=== PATIENT | male | born 1965 | race Hispanic/Latino ===

== ENCOUNTER 2016-07-27 09:33 | Emergency (ER) | payer OTHER ==
[2016-07-27 09:34] VITALS: BMI 21.8
[2016-07-27 09:46] VITALS: BP 134/84; PULSE 84; RESP 18; TEMP 98.3; O2SAT 96
--- NOTE | 2016-07-27 12:06 | RAD ---
PROCEDURE: Radiographs of the Left Shoulder HISTORY: shoulder pain COMPARISON: No prior. FINDINGS: BONES: Normal. No fracture. JOINTS: Normal. Glenohumeral and acromioclavicular joints preserved. No osteoarthritis. SOFT TISSUES: Normal. OTHER FINDINGS: None. IMPRESSION: Normal radiographs of the left shoulder.
--- NOTE | 2016-07-27 12:16 | CT ---
PROCEDURE: CT NECK WITHOUT CONTRAST HISTORY: intermittent difficulty swallowing x 1 week COMPARISON: None. TECHNIQUE: CT of the neck without intravenous contrast. Coronal and sagittal reformats generated. Radiation dose: DLP 309 mGy-cm This CT exam was performed using one or more of the following dose reduction techniques: Automated exposure control, adjustment of the mA and/or kV according to patient size, and/or use of iterative reconstruction technique. FINDINGS: NASOPHARYNX: Unremarkable. SUPRAHYOID NECK: Unremarkable oropharynx, oral cavity, parapharyngeal space and retropharyngeal space. INFRAHYOID NECK: Unremarkable larynx, hypopharynx, and supraglottic space. Vocal cords intact. MASS: None. GLANDS: Parotid and submandibular glands unremarkable. Normal size thyroid gland, without nodule. LYMPH NODES: Mild adenopathy CERVICAL SPINE: No fracture or focal lesion. OTHER FINDINGS: None. IMPRESSION: Unremarkable non-contrast enhanced CT of the neck.
--- NOTE | 2016-07-27 13:23 | ED PDOC ---
Arrival/HPI - General Chief Complaint: Upper Extremity Problem/Injury Time Seen by Provider: 07/27/16 10:14 Historian: Patient - History of Present Illness Narrative History of Present Illness (Text): 07/27/16 51-year-old male presents today with left-sided shoulder pain worsening over the past 2 days. Patient states he has chronic shoulder pain. Patient states he takes oxycodone at home. Patient denies any recent trauma or injury. He denies radiation of pain to the chest or back. Patient states this is the same shoulder pain that he always has. Patient states he had an MRI in the past. Patient denies numbness weakness or tingling in the extremity. Patient also complaining of one to 2 week history of intermittent difficulty with swallowing. Patient states sometimes when he eats food he feels like it starting to get stuck in the throat. He denies trauma or injury. Patient states he is able to tolerate his saliva as well as liquids and occasionally solids. Patient denies any difficulty breathing. Denies fevers or chills. Past Medical History - Provider Review Nursing Documentation Reviewed: Yes - Travel History Have you recently traveled outside [place] w/in the past 3 mons?: No - Infectious Disease Hx of Infectious Diseases: None - Tetanus Immunization Tetanus Immunization: Unknown - Cardiac Hx Cardiac Disorders: No - Pulmonary Hx Respiratory Disorders: No - Neurological Hx Neurological Disorder: No - HEENT Hx HEENT Disorder: No - Renal Hx Renal Disorder: No Hx Renal Failure: No - Endocrine/Metabolic Hx Endocrine Disorders: No - Hematological/Oncological Hx Blood Disorders: No - Integumentary Hx Dermatological Disorder: No - Musculoskeletal/Rheumatological Hx Back Pain: Yes Other/Comment: Knee problems - Gastrointestinal Hx Gastrointestinal Disorders: No - Genitourinary/Gynecological Hx Genitourinary Disorders: No Hx Prostate Problems: Yes Other/Comment: hx of kidney stones, frequent urination. On flomax daily - Psychiatric Hx Substance Use: No - Surgical History Hx Amputation: No Hx Appendectomy: Yes Hx Cardiac Catheterization: Yes Hx Orthopedic Surgery: Yes (knee) - Suicidal Assessment Feels Threatened In Home Enviroment: No Family/Social History - Physician Review Nursing Documentation Reviewed: Yes Family/Social History: Unknown Family HX Smoking Status: Heavy Smoker > 10 Cigarettes Daily Hx Alcohol Use: No Hx Substance Use: No Hx Substance Use Treatment: No Allergies/Home Meds Allergies/Adverse Reactions: Allergies No Known Allergies Allergy (Verified 07/27/16 09:46) Home Medications: Home Meds Medication Instructions Recorded Confirmed Tamsulosin [Flomax] 0.4 mg PO BID 02/21/13 07/27/16 oxyCODONE [oxyCODONE Immediate 30 mg PO QD6 02/23/16 07/27/16 Release Tab] ALPRAZolam [Xanax] 1 tab PO BID 07/27/16 07/27/16 Review of Systems - Review of Systems Constitutional: absent: Fatigue, Fevers ENT: Sinus Congestion. absent: Sore Throat, Rhinorrhea, Epistaxis Respiratory: absent: SOB, Cough Cardiovascular: absent: Chest Pain, Palpitations Gastrointestinal: absent: Abdominal Pain, Diarrhea, Nausea, Vomiting Genitourinary Male: absent: Dysuria Musculoskeletal: Arthralgias. absent: Back Pain, Neck Pain Skin: absent: Rash, Pruritis Physical Exam Vital Signs Reviewed: Yes Vital Signs Temp Pulse Resp BP Pulse Ox 07/27/16 09:39 98.3 F 84 18 134/84 96 Temperature: Afebrile Blood Pressure: Normal Pulse: Regular Respiratory Rate: Normal Appearance: Positive for: Well-Appearing, Non-Toxic, Comfortable Pain Distress: None Mental Status: Positive for: Alert and Oriented X 3 - Systems Exam Head: Present: Atraumatic Mouth: Present: Moist Mucous Membranes, Normal Lips. No: Drooling, Trismus Pharnyx: Present: Normal. No: ERYTHEMA, EXUDATE, TONSILS ENLARGED, Peritonsilar Swelling, Uvular Deviation, Muffled/Hoarse Voice, Strider, Soft Palate/Uvular Edema Neck: Present: Normal Range of Motion Respiratory/Chest: Present: Clear to Auscultation, Good Air Exchange. No: Respiratory Distress, Accessory Muscle Use Cardiovascular: Present: Regular Rate and Rhythm, Normal S1, S2. No: Murmurs Abdomen: No: Tenderness Upper Extremity: Present: NORMAL PULSES, Tenderness (left shoulder + ttp over anterior aspect of shoulder; decreased abduction; no erythema; no edema, no ecchymosis; sensation and distal pulses intact. cap refill <2. ), Neurovascularly Intact, Capillary Refill < 2s. No: Normal ROM, Swelling, Erythema, Deformity Neurological: Present: GCS=15 Skin: Present: Warm, Dry, Normal Color. No: Rashes Psychiatric: Present: Alert, Oriented x 3 Medical Decision Making ED Course and Treatment: 07/27/16 51-year-old smoker with chronic left-sided shoulder pain X-rays of the left shoulder show no fracture Toradol given for pain Patient complaining of dysphagia to solids over the past 2 weeks. Airways patent. There is no difficulty breathing. We'll do a CAT scan of the neck to evaluate for obstruction. will do cxr as well ct neck ; wnl cxr; wnl discussed all results with patient in depth; advised patient to follow a soft diet and F/u with GI within the next 2 days. advised patient that he will most likely need evaluation of the esophagus with endoscopy. advised patient to return immediately if symptoms worsen,persist or if new symptoms develop. advised patient to f/u with orthopedist regarding is chronic shoulder pain. pt tolerating secretions and liquids in er. no distress. pt is requesting additional pain medication in the er. i advised the patient that this is chronic shoulder pain and he can take his prescribed medications. i have reviewed the [facility] website and found that on 07/14 the patient received 120 oxycodones. i advised adding motrin for inflammation. again i stressed with the patient the importance of immediate f/u with GI regarding his dysphagia. Patient verbalizes understanding of discharge instructions and need for immediate followup. all aspects of this case were discussed the attending of record. Impression: Shoulder pain, dysphagia motrin every 6 hours as needed for pain flonase; 2 sprays each nostril once daily. SOFT DIET Follow up with the GI specialist within the next 2 days. return immediately if symptoms worsen,persist or if new symptoms develop. follow up with the orthopedist within the next 2 days. - RAD Interpretation Radiology Orders: 07/27/16 10:17 SHOULDER LEFT [RAD] Stat 07/27/16 10:26 NECK SOFT TISSUE W/O CONTRAST [CT] Stat 07/27/16 13:37 CHEST TWO VIEWS (PA/LAT) [RAD] Stat - Medication Orders Current Medication Orders: Discontinued Medications Ketorolac Tromethamine (Toradol) 60 mg IM STAT STA Stop: 07/27/16 10:18 Last Admin: 07/27/16 10:49 Dose: 60 MG IM Administration Charges Document 07/27/16 10:49 FRANNY (Rec: 07/27/16 10:49 FRANNY [facility] [id number]) Injection Site MAR Injection Site Left Deltoid Charges for Administration # of IM Administrations 1 Disposition/Present on Arrival - Present on Arrival Any Indicators Present on Arrival: No History of DVT/PE: No History of Uncontrolled Diabetes: No Urinary Catheter: No History of Decub. Ulcer: No History Surgical Site Infection Following: None - Disposition Have Diagnosis and Disposition been Completed?: Yes Diagnosis: Shoulder pain, Dysphagia Disposition: HOME/ ROUTINE Disposition Time: 13:00 Patient Plan: Discharge Condition: GOOD Discharge Instructions (ExitCare): Dysphagia (ED), Shoulder Pain (ED) Additional Instructions: motrin every 6 hours as needed for pain flonase; 2 sprays each nostril once daily. SOFT DIET Follow up with the GI specialist within the next 2 days. return immediately if symptoms worsen,persist or if new symptoms develop. follow up with the orthopedist within the next 2 days. Prescriptions: Ibuprofen [Motrin] 600 mg PO Q6H PRN #20 tab PRN Reason: pain/fever reduction Referrals: Austin oJe JD, MD [Primary Care Provider] - Follow up with primary Spencer Rayo MD [Staff Provider] - Follow up with primary Daquan Lopez III, MD [Medical Doctor] - Follow up with primary Forms: WORK NOTE
--- NOTE | 2016-07-27 14:56 | RAD ---
HISTORY: dysphagia COMPARISON: 02/23/2016 TECHNIQUE: Chest PA and lateral FINDINGS: LUNGS: No active pulmonary disease. PLEURA: No significant pleural effusion identified. No pneumothorax apparent. CARDIOVASCULAR: Normal. OSSEOUS STRUCTURES: No significant abnormalities. VISUALIZED UPPER ABDOMEN: Normal. OTHER FINDINGS: None. IMPRESSION: No active disease.
== END 2016-07-27 15:08 | disposition home or self-care (01) ==
LOC: ED 09:33
DX: M25.512 Pain in left shoulder (principal); R13.10 Dysphagia, unspecified; F17.210 Nicotine dependence, cigarettes, uncomplicated
CPT/HCPCS: 70490; 71020; 73030; 96372; 99282; J1885

== ENCOUNTER 2017-04-24 02:54 | Inpatient (IN) | payer OTHER ==
[2017-04-24 02:54] VITALS: BMI 21.8
--- NOTE | 2017-04-24 02:56 | ED PDOC ---
Arrival/HPI - General Time Seen by Provider: 04/24/17 02:56 Historian: Family, EMS - History of Present Illness Narrative History of Present Illness (Text): 04/24/17 02:56 Abel Branham is a 51 year old male, whose past medical history degenerative joint disease, chronic pain on Oxycontin, opiate dependence, COPD, hyperlipidemia, and BPH, who presents to the Emergency department brought in by EMS status post possible overdose tonight. As per EMS, patient was found unresponsive by his son who notified EMS. Son notes patient passed out once while in the bathroom yesterday and was last seen normal at 21:00. Family states patient may have taken Oxycontin and Xanax. On arrival, EMS noted patient with agonal breathing, patient was given 2 doses of Narcan in the field with minimal response. Patient lethargic and poorly responsive on arrival to Emergency department. Limited HPI and ROS secondary to patient's altered mental status. PMD: Dr. Patricia Joe Time/Duration: Other (tonight) Symptom Onset: Sudden Symptom Course: Unchanged Severity Level: Severe Activities at Onset: Light Context: Home Past Medical History - Provider Review Nursing Documentation Reviewed: Yes - Infectious Disease Hx of Infectious Diseases: None - Tetanus Immunization Tetanus Immunization: Unknown - Cardiac Hx Cardiac Disorders: No - Pulmonary Hx Respiratory Disorders: No - Neurological Hx Neurological Disorder: No - HEENT Hx HEENT Disorder: No - Renal Hx Renal Disorder: No Hx Renal Failure: No - Endocrine/Metabolic Hx Endocrine Disorders: No - Hematological/Oncological Hx Blood Disorders: No - Integumentary Hx Dermatological Disorder: No - Musculoskeletal/Rheumatological Hx Back Pain: Yes Other/Comment: Knee problems - Gastrointestinal Hx Gastrointestinal Disorders: No - Genitourinary/Gynecological Hx Genitourinary Disorders: No Hx Prostate Problems: Yes Other/Comment: hx of kidney stones, frequent urination. On flomax daily - Psychiatric Hx Substance Use: No - Surgical History Hx Amputation: No Hx Appendectomy: Yes Hx Cardiac Catheterization: Yes Hx Orthopedic Surgery: Yes (knee) - Suicidal Assessment Feels Threatened In Home Enviroment: No Family/Social History - Physician Review Nursing Documentation Reviewed: Yes Family/Social History: Unknown Family HX Smoking Status: Heavy Smoker > 10 Cigarettes Daily Hx Alcohol Use: No Hx Substance Use: No Hx Substance Use Treatment: No Allergies/Home Meds Allergies/Adverse Reactions: Allergies No Known Allergies Allergy (Verified 07/27/16 09:46) Home Medications: Home Meds Medication Instructions Recorded Confirmed Tamsulosin [Flomax] 0.4 mg PO BID 02/21/13 04/24/17 oxyCODONE [oxyCODONE Immediate 30 mg PO QD6 02/23/16 04/24/17 Release Tab] ALPRAZolam [Xanax] 1 tab PO BID 07/27/16 04/24/17 Review of Systems - Review of Systems Systems not reviewed;Unavailable: Altered Mental Status Physical Exam Vital Signs Reviewed: Yes Vital Signs Temp Pulse Resp BP Pulse Ox 04/24/17 05:16 100.3 F H 112 H 16 90/71 L 99 04/24/17 04:53 100 H 15 86/69 L 100 04/24/17 04:33 112 H 16 93/72 L 100 04/24/17 04:18 114 H 16 100/69 100 04/24/17 04:03 100 H 16 102/73 100 04/24/17 03:33 102 F H 123 H 16 118/55 L 100 04/24/17 03:32 102.8 F H 102 H 44 H 151/73 H 89 L 04/24/17 03:15 100 H 17 101/70 100 04/24/17 03:00 102.8 F H 102 H 33 H 151/73 H 89 L Temperature: Febrile Blood Pressure: Hypertensive Pulse: Tachycardic Respiratory Rate: Tachypneic Mental Status: Positive for: Lethargic, other (Poorly responsive) - Systems Exam Head: Present: Atraumatic, Normocephalic Pupils: Present: PERRL Extroacular Muscles: Present: EOMI Conjunctiva: Present: Normal Ears: Present: Normal, NORMAL TM, Normal Canal. No: Erythema, TM Bulging, Fluid , TM Perf Mouth: Present: Moist Mucous Membranes Pharnyx: Present: Normal. No: ERYTHEMA, EXUDATE, TONSILS ENLARGED, Peritonsilar Swelling, Uvular Deviation, Muffled/Hoarse Voice, Strider, Soft Palate/Uvular Edema Nose (External): Present: Atraumatic Nose (Internal): Present: Normal Inspection Neck: Present: Normal Range of Motion Respiratory/Chest: Present: Rhonchi Cardiovascular: Present: Tachycardic. No: Murmurs Abdomen: Present: Normal Bowel Sounds. No: Tenderness, Distention, Peritoneal Signs Upper Extremity: Present: Normal Inspection. No: Cyanosis, Edema Lower Extremity: Present: Normal Inspection. No: Edema Neurological: No: GCS=15 (GCS=10) Skin: Present: Warm, Dry Psychiatric: Present: Lethargic (Poorly responsive) Medical Decision Making ED Course and Treatment: 04/24/17 02:56 Impression: 51 year old male brought in s/p possible overdose prior to arrival. Plan: -- EKG -- Chest X-ray -- Labs, cardiac enzymes, alcohol level, VBG, ABG, blood cultures -- Urinalysis, urine drug screen, urine cultures -- IV fluids -- Tylenol -- Reassess and disposition Prior Visits: Notes and results from previous visits were reviewed. On 07/27/2016, pt was seen in the Emergency department for left-sided shoulder pain and difficulty swallowing. Pt was d/c home. Progress Notes: Pt seen on arrival to Emergency room. Pt noted to be lethargic, poorly responsive. Will emergently intubate due to low pulse ox < 90% and respiratory distress with tachypnea. 04/24/17 03:05 PROCEDURE: INTUBATION Performed by the emergency provider Consent: Discussion of the risks, benefits, and alternatives to the procedure, along with informed consent was precluded by the urgency of the procedure and the patient condition. Timeout: A timeout to verify the correct patient, procedure, and site was performed. Indication: Respiratory distress with tachypnea, low pulse ox < 90% Pre-oxygenation: [id number] Medications: Etomidate, Propofol. See MAR for details. ETT Size: 8 gauge Confirmation: Cords directly visualized as tube passed, good bilateral breath sounds, positive CO2 detector color change, tube fogging, adequate chest rise, improving pulse oximetry reading, improved skin color, and absence of gastric sounds,. ETT Secured: The cuff was inflated and the tube was secured appropriately at a distance of 22 cm at the lip. Post-Procedure: There were no immediate complications. CXR Confirmation: Yes 04/24/17 03:46 Reviewed EKG, sinus tachycardia at [address] bpm[address] Non-specific ST/T wave changes. 04/24/17 03:51 Lactate: 5.9, pt ferile, tachycardic. Code Sepsis called. 04/24/17 03:53 Post-intubation Chest X-ray reviewed, shows increased interstitial markings. ET tube high-riding, will need to be adjusted. 04/24/17 04:05 ET tube readjusted, now 26 cm at the lip, 100% O2 saturation. Repeat Chest X- ray ordered. 04/24/17 04:[address] Amalia Mooney, resolution specialist, who is aware and agrees to evaluate pt for ICU admission. Case discussed with medical affairs director health information coder, who is aware and agrees with plan. 04/24/17 04:36 repeat Chest X-ray reviewed, ET tube above the neville. 04/24/17 04:[address] Marroquin, covering for Dr. Joe, states pt can go to hospitalist service. Pt will be admitted to the ICU for drug overdose, respiratory failure, sepsis, and pneumonia. - Critical Care Critical Care Minutes: 45 minutes - Lab Interpretations Lab Results: 04/24/17 03:00 04/24/17 03:00 Lab Results 04/24/17 03:33: pCO2 57 H, pO2 309.0 H, HCO3 27.4, ABG pH 7.29 L, ABG Total CO2 29.1 H, ABG O2 Saturation 100.2 H, ABG Base Excess -0.3, ABG Potassium 3.1 L, Sodium 141.0, Chloride 108.0 H, Glucose 141 H, Lactate 3.0 H, FiO2 100.0, Arterial Blood Potassium 3.1 L 04/24/17 03:00: Salicylates < 1 L, Acetaminophen < 10.0 L 04/24/17 03:00: Alcohol, Quantitative < 10 04/24/17 03:00: Sodium 144, Chloride 100, Potassium 4.2, Carbon Dioxide 31, Anion Gap 18, BUN 21, Creatinine 1.1, Est GFR ( Amer) > 60, Est GFR (Non- Af Amer) > 60, Random Glucose 190 H, Calcium 9.1, Phosphorus 3.6, Magnesium 2.4 H, Total Bilirubin 0.5, AST 84 H, ALT 48, Alkaline Phosphatase 57, Lactate Dehydrogenase 545, Total Creatine Kinase 379 H, CK-MB (CK-2) 4.9 H, CK-MB (CK-2 ) % Cancelled, Troponin I 0.16 H* D, Total Protein 7.3, Albumin 4.3, Globulin 3.0, Albumin/Globulin Ratio 1.4 04/24/17 03:00: pO2 30, VBG pH 7.20 L, VBG pCO2 81.0 H*, VBG HCO3 31.7 H, VBG Total CO2 34.2 H, VBG O2 Sat (Calc) 62.8, VBG Base Excess 1.2, VBG Potassium 4.6 , Sodium 141.0, Chloride 102.0, Glucose 185 H, Lactate 5.9 H*, FiO2 21.0, Venous Blood Potassium 4.6 04/24/17 03:00: PT 11.4, INR 1.04, APTT 28.8 04/24/17 03:00: WBC 15.2 H D, RBC 4.43, Hgb 13.8 L, Hct 42.5, MCV 95.9, MCH 31.2 , MCHC 32.5, RDW 14.1, Plt Count 192, MPV 11.0, Gran % 86.9 H, Lymph % (Auto) 6.4 L, Leslie % (Auto) 6.4 H, Eos % (Auto) 0.1 L, Baso % (Auto) 0.2, Gran # 13.17 H, Lymph # 1.0 L, Leslie # 1.0 H, Eos # 0.0, Baso # 0.03 I have reviewed the lab results: Yes - RAD Interpretation Radiology Orders: 04/24/17 03:25 CHEST PORTABLE [RAD] Stat 04/24/17 04:22 CHEST PORTABLE [RAD] Stat Dairy Helper: ED Physician - EKG Interpretation Interpreted by ED Physician: Yes Type: 12 lead EKG - Medication Orders Current Medication Orders: Enoxaparin Sodium (Lovenox) 80 mg SC Q12H ANILA PRN Reason: Protocol Last Admin: 04/24/17 11:49 Dose: 80 mg Subcutaneous Administrations Document 04/24/17 11:49 [email or web address] (Rec: 04/24/17 11:49 [email or web address]) Injection Site MAR Injection Site Right Abdomen Charges for Administration # of Subcutaneous Administrations 1 Propofol (Diprivan) 1,000 mg in 100 mls @ 2.191 mls/hr IV .Q24H PRN; Protocol; 5 MCG/KG/MIN PRN Reason: TITRATE PER MD ORDER Last Titration: 04/24/17 18:14 Dose: 30 mcg/kg/min, 13.145 mls/hr Titration Intervention Document 04/24/17 18:14 [email or web address] (Rec: 04/24/17 18:14 [email or web address] [id number]) Titration Intake Titration Intake 30 Cumulative Intake 70 Cumulative Intake (Rx) 70 Waste Amount 0 Container Volume 30 Titration Dosing Titration Dose 30 IV Rate 13.145 Intake/Decrease Increased Cumulative Dose 700 Sodium Chloride (Sodium Chloride 0.9%) 1,000 mls @ 100 mls/hr IV .Q10H ANILA Last Admin: 04/24/17 18:03 Dose: 100 mls/hr eMAR Start Stop Document 04/24/17 18:03 [email or web address] (Rec: 04/24/17 18:03 [email or web address] [id number]) Intravenous Solution Start Date 04/24/17 Start Time 18:03 Vancomycin HCl (Vancomycin 1gm) 1 gm in 250 mls @ 167 mls/hr IVPB DAILY ANILA PRN Reason: Protocol Vancomycin HCl (Vancomycin 1gm) 1 gm in 250 mls @ 167 mls/hr IVPB Q12H ANILA PRN Reason: Protocol Stop: 05/03/17 10:46 Last Admin: 04/24/17 11:12 Dose: Piperacillin Sod/Tazobactam Sod (Zosyn 3.375 In Ns 100ml) 100 mls @ 200 mls/hr IVPB Q6 ANILA PRN Reason: Protocol Stop: 05/03/17 12:01 Last Admin: 04/24/17 17:59 Dose: 200 mls/hr eMAR Start Stop Document 04/24/17 17:59 [email or web address] (Rec: 04/24/17 17:59 [email or web address] [id number] [id number]) Intravenous Solution Start Date 04/24/17 Start Time 17:59 End Date 04/24/17 End time 18:29 Total Infusion Time 30 Levofloxacin/Dextrose (Levaquin 750mg) 750 mg IVPB DAILY ANILA Stop: 05/04/17 10:01 Nicotine (Nicoderm Cq) 1 patch TD DAILY [facility] Last Admin: 04/24/17 18:01 Dose: 1 patch MAR Transdermal Patch Site Document 04/24/17 18:01 [email or web address] (Rec: 04/24/17 18:02 [email or web address] [id number]) Transdermal Patch Site Transdermal Patch Site Right Outer Upper Arm Pantoprazole Sodium (Protonix Inj) 40 mg IVP DAILY ANILA Last Admin: 04/24/17 10:26 Dose: 40 mg IVP Administration Document 04/24/17 10:26 [email or web address] (Rec: 04/24/17 10:26 [email or web address] [id number]) Charges for Administration # of IVP Administrations 1 Discontinued Medications Acetaminophen (Tylenol 650 Mg Supp) 650 mg RC STAT STA Stop: 04/24/17 03:42 Last Admin: 04/24/17 03:55 Dose: Etomidate (Amidate) 10 mg IVP STAT STA Stop: 04/24/17 03:16 Last Admin: 04/24/17 03:04 Dose: 10 mg IVP Administration Document 04/24/17 03:04 AB (Rec: 04/24/17 04:34 AB [id number] Charges for Administration # of IVP Administrations 1 Sodium Chloride (Sodium Chloride 0.9%) 1,000 mls @ 2,000 mls/hr IV .Q30M ONE Stop: 04/24/17 04:02 Last Admin: 04/24/17 03:54 Dose: 2,000 mls/hr eMAR Start Stop Document 04/24/17 03:54 AB (Rec: 04/24/17 03:54 AB [facility] [id number]) Intravenous Solution Start Date 04/24/17 Start Time 03:00 End Date 04/24/17 Sodium Chloride (Sodium Chloride 0.9%) 1,000 mls @ 999 mls/hr IV .Q1H1M STA Stop: 04/24/17 04:51 Last Admin: 04/24/17 03:55 Dose: 999 mls/hr eMAR Start Stop Document 04/24/17 03:55 AB (Rec: 04/24/17 03:55 AB [facility] [id number]) Intravenous Solution Start Date 04/24/17 Start Time 03:55 End Date 04/24/17 Vancomycin HCl (Vancomycin 1gm) 1 gm in 250 mls @ 167 mls/hr IVPB STAT STA PRN Reason: Protocol Stop: 04/24/17 05:28 Last Admin: 04/24/17 04:47 Dose: 167 mls/hr eMAR Start Stop Document 04/24/17 04:47 AB (Rec: 04/24/17 04:48 AB [facility] [id number]) Intravenous Solution Start Date 04/24/17 Start Time 04:48 End Date 04/24/17 End time 05:48 Total Infusion Time 60 Piperacillin Sod/Tazobactam Sod (Zosyn 4.5 Gm In Ns 100ml) 4.5 gm in 100 mls @ 200 mls/hr IVPB STAT STA PRN Reason: Protocol Stop: 04/24/17 04:28 Last Admin: 04/24/17 04:28 Dose: 200 mls/hr eMAR Start Stop Document 04/24/17 04:28 AB (Rec: 04/24/17 04:31 AB [id number]) Intravenous Solution Start Date 04/24/17 Start Time 04:28 End Date 04/24/17 End time 04:58 Total Infusion Time 30 Sodium Chloride (Sodium Chloride 0.9%) 1,000 mls @ 999 mls/hr IV .Q1H1M STA Stop: 04/24/17 05:30 Piperacillin Sod/Tazobactam Sod (Zosyn 4.5 Gm In Ns 100ml) 4.5 gm in 100 mls @ 200 mls/hr IVPB Q6H ANILA PRN Reason: Protocol Stop: 04/24/17 16:29 Last Admin: 04/24/17 10:26 Dose: 200 mls/hr eMAR Start Stop Document 04/24/17 10:26 [email or web address] (Rec: 04/24/17 10:26 [email or web address] [id number]) Intravenous Solution Start Date 04/24/17 Start Time 10:26 End Date 04/24/17 End time 10:56 Total Infusion Time 30 Sodium Chloride (Sodium Chloride 0.9%) 500 mls @ 999 mls/hr IV .Q31M STA Stop: 04/24/17 08:39 Last Admin: 04/24/17 10:25 Dose: 999 mls/hr eMAR Start Stop Document 04/24/17 10:25 [email or web address] (Rec: 04/24/17 10:25 [email or web address] [id number]) Intravenous Solution Start Date 04/24/17 Start Time 08:00 End Date 04/24/17 End time 08:32 Total Infusion Time 32 Pneumococcal Polyvalent Vaccine (Pneumovax 23 Vaccine) 0.5 ml IM .ONCE ONE Stop: 04/24/17 12:32 Propofol (Diprivan) 100 mg IVP ONCE ONE Stop: 04/24/17 03:21 Last Admin: 04/24/17 03:06 Dose: 100 mg IVP Administration Document 04/24/17 03:06 AB (Rec: 04/24/17 04:34 AB [id number]) Charges for Administration # of IVP Administrations 1 - Scribe Statement The provider has reviewed the documentation as recorded by the Consueloibruth Curry Provider Scribe Attestation: All medical record entries made by the Scribe were at my direction and personally dictated by me. I have reviewed the chart and agree that the record accurately reflects my personal performance of the history, physical exam, medical decision making, and the department course for this patient. I have also personally directed, reviewed, and agree with the discharge instructions and disposition. Disposition/Present on Arrival - Present on Arrival Any Indicators Present on Arrival: No History of DVT/PE: No History of Uncontrolled Diabetes: No Urinary Catheter: No History Surgical Site Infection Following: None - Disposition Have Diagnosis and Disposition been Completed?: Yes Diagnosis: Sepsis, Pneumonia, Drug overdose Disposition: HOSPITALIZED Disposition Time: 05:04 Patient Plan: Admission Patient Problems: Current Active Problems Problem Status Onset Drug overdose Acute Pneumonia Acute Sepsis Acute Condition: GUARDED
[2017-04-24] MEDS ORDERED: Etomidate 20 mg/10ml Inj IV ONE (03:01)
[2017-04-24] MEDS ORDERED: Propofol 10 mg/ml 1,000 MG/100 ML VIAL ONE (03:08)
[2017-04-24] MEDS ORDERED: Propofol 10 mg/ml Inj (20 ML) ONE (03:08)
[2017-04-24] MEDS: Propofol 10 mg/ml 1,000 MG/100 ML VIAL IV PRN ×2 (03:09→22:58)
[2017-04-24] MEDS ORDERED: Etomidate 20 mg/10ml Inj IVP STA (03:15)
[2017-04-24] MEDS ORDERED: Propofol 10 mg/ml Inj (20 ML) IVP ONE (03:20)
[2017-04-24] MEDS ORDERED: Sodium Chloride 0.9% 1,000 ML IV ONE (03:33)
[2017-04-24 03:48] LABS: VENOUS BLOOD GAS BASE EXCESS 1.2 mmol/L (0.0-2.0); VENOUS BLOOD GAS PO2 30 mm/Hg (30-55)
[2017-04-24] MEDS ORDERED: Sodium Chloride 0.9% 1,000 ML IV STA ×2 (03:51→04:30)
[2017-04-24 03:53] LABS: BASO # 0.03 K/mm3 (0.0-2.0); BASO % 0.2 % (0.0-3.0); EOS % 0.1 % (1.5-5.0); GRAN # 13.17 (1.4-6.5); GRAN % 86.9 % (50.0-68.0); HEMOGLOBIN 13.8 g/dL (14.0-18.0); LYMPH % 6.4 % (22.0-35.0); MEAN CELL VOLUME 95.9 fl (80.0-105.0); MEAN CORPUSCULAR HEMOGLOBIN 31.2 pg (25.0-35.0); MEAN CORPUSCULAR HGB CONC 32.5 g/dl (31.0-37.0); MONO % 6.4 % (1.0-6.0); RBC 4.43 10^6/uL (3.5-6.1); RED CELL DISTRIBUTION WIDTH 14.1 % (11.5-14.5); WHITE BLOOD COUNT 15.2 10^3/ul (4.5-11.0)
[2017-04-24 03:57] LABS: INR 1.04 (0.93-1.08); PROTHROMBIN TIME 11.4 SECONDS (9.4-12.5)
[2017-04-24 03:58] LABS: PARTIAL THROMBOPLASTIN TIME 28.8 Seconds (25.1-36.5)
[2017-04-24] MEDS ORDERED: Piperacill/Tazo 4.5gm in NS 4.5 GM/100 ML BAG IVPB STA (03:59)
[2017-04-24] MEDS ORDERED: Vancomycin 1gm in NS 250ml 1 GM/250 ML BAG IVPB STA (03:59)
[2017-04-24 04:05] LABS: ALB/GLOB RATIO 1.4 (1.1-1.8); ALBUMIN 4.3 g/dL (3.0-4.8); ALT/SGPT 48 U/L (7-56); AST/SGOT 84 U/L (17-59); BLOOD UREA NITROGEN 21 mg/dL (7-21); CALCIUM 9.1 mg/dL (8.4-10.5); GFR AFRICAN-AMERICAN > 60; GFR NON-AFRICAN AMERICAN > 60; MAGNESIUM 2.4 mg/dL (1.7-2.2)
[2017-04-24 04:05] LABS: ARTERIAL BLOOD GAS HCO3 27.4 mmol/L (21-28); ARTERIAL BLOOD GAS O2 SAT 100.2 % (95-98); ARTERIAL BLOOD GAS PCO2 57 mm/Hg (35-45); ARTERIAL BLOOD GAS PH 7.29 (7.35-7.45); ARTERIAL BLOOD GAS TCO2 29.1 mmol.L (22-28)
[2017-04-24] MEDS: Sodium Chloride 0.9% 1,000 ML IV SCH ×3 (04:36→22:27)
[2017-04-24 04:39] LABS: CK-MB 4.9 ng/mL (0.0-3.6); TROPONIN I 0.16 ng/mL
[2017-04-24 04:40] LABS: ACETAMINOPHEN < 10.0 ug/ml (10.0-20.0); SALICYLATE < 1 mg/dL (2.0-20.0)
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
[2017-04-24 06:13] LABS: PH,URINE 5.5 (4.7-8.0); URINE BILIRUBIN NEGATIVE (NEGATIVE); URINE BLOOD LARGE (NEGATIVE); URINE GLUCOSE (UA) NEGATIVE (NEGATIVE); URINE LEUKOCYTE ESTERASE NEGATIVE Leu/uL (NEGATIVE); URINE NITRATE NEGATIVE (NEGATIVE); URINE PROTEIN 30 mg/dL (<30 mg/dL); URINE UROBILINOGEN 0.2 E.U./dL (<1 E.U./dL)
[2017-04-24 06:20] LABS: URINE APPEARANCE SL CLOUDY (CLEAR); URINE COLOR YELLOW (YELLOW)
[2017-04-24 06:52] LABS: URINE BACTERIA MOD (NEG); URINE EPITHELIAL CELLS 0 - 2 /hpf (0-5); URINE RBC 20 - 25 /hpf (0-2); URINE WBC 0 - 2 /hpf (0-6)
--- NOTE | 2017-04-24 07:00 | CT ---
EXAM: CT Head Without Intravenous Contrast EXAM DATE/TIME: 04/24/2017 5:00 AM CLINICAL HISTORY: 51 years old, male; Signs and symptoms; Other: Unresponsive TECHNIQUE: Axial computed tomography images of the head/brain without intravenous contrast. All CT scans at this facility use one or more dose reduction techniques, viz.: automated exposure control; ma/kV adjustment per patient size (including targeted exams where dose is matched to indication; i.e. head); or iterative reconstruction technique. Coronal and sagittal reformatted images were created and reviewed. COMPARISON: No relevant prior studies available. FINDINGS: Brain: Unremarkable. No hemorrhage. No significant white matter disease. No edema. Ventricles: Unremarkable. No ventriculomegaly. Bones/joints: Unremarkable. No acute fracture. Soft tissues: Unremarkable. Sinuses: Partial opacification ethmoid sinus. Mucosal thickening maxillary and sphenoid sinuses with 1 cm right maxillary mucous retention cyst. Mastoid air cells: Unremarkable as visualized. No mastoid effusion. Nasopharynx: Fluid in nasal passage and nasopharynx. IMPRESSION: No acute cerebral hemorrhage or edema.
--- NOTE | 2017-04-24 07:09 | CT ---
EXAM: CT Chest Without Intravenous Contrast CT Abdomen and Pelvis Without Intravenous Contrast EXAM DATE/TIME: 04/24/2017 5:06 AM CLINICAL HISTORY: 51 years old, male; Signs and symptoms; Other: Septic; Additional info: Sepsis TECHNIQUE: Axial computed tomography images of the chest, abdomen and pelvis without intravenous contrast. All CT scans at this facility use one or more dose reduction techniques, viz.: automated exposure control; ma/kV adjustment per patient size (including targeted exams where dose is matched to indication; i.e. head); or iterative reconstruction technique. Coronal and sagittal reformatted images were created and reviewed. COMPARISON: No relevant prior studies available. FINDINGS: CHEST: Lungs: Bilateral, right greater than left, lower lobe consolidation. Sparing anterior basal segments. Pleural space: Trace right pleural effusion. No pneumothorax. Heart: Unremarkable. No cardiomegaly. No significant pericardial effusion. ABDOMEN: Liver: Trace fluid around liver dome. Gallbladder and bile ducts: Unremarkable. No calcified stones. No ductal dilation. Pancreas: Unremarkable. No ductal dilation. Spleen: Unremarkable. No splenomegaly. Adrenals: Unremarkable. No mass. Kidneys and ureters: Unremarkable. No obstructing stones. No hydronephrosis. Stomach and bowel: Increase fecal material from cecum to rectum. No obstruction. No mucosal thickening. Appendix: Not identified, surgical suture cecal base, presumed appendectomy. PELVIS: Bladder: Bladder collapsed with a Daniel catheter. No stones. Reproductive: Unremarkable as visualized. CHEST, ABDOMEN and PELVIS: Intraperitoneal space: Unremarkable. No significant fluid collection. No free air. Bones/joints: Degenerative disc disease L3-4, L4-5 and greatest at L5-S1. Facet joint arthrosis. No acute fracture. No dislocation. Soft tissues: Unremarkable. Vasculature: Unremarkable. No aortic aneurysm. Lymph nodes: Unremarkable. No enlarged lymph nodes. Tubes, lines and devices: Endotracheal tube in satisfactory position. Enteric tube tip in the gastroduodenal junction. IMPRESSION: 1. Bilateral right greater than left lower lobe pneumonia. Trace right pleural effusion. 2. Trace amount of fluid right upper quadrant. No acute abdominal information or bowel obstruction. Increased fecal load.
[2017-04-24] MEDS ORDERED: Sodium Chloride 0.9% 500 ML IV STA (08:09)
[2017-04-24 08:52] LABS: ARTERIAL BLOOD GAS HCO3 24.6 mmol/L (21-28); ARTERIAL BLOOD GAS O2 SAT 100.1 % (95-98); ARTERIAL BLOOD GAS PCO2 37 mm/Hg (35-45); ARTERIAL BLOOD GAS PH 7.43 (7.35-7.45); ARTERIAL BLOOD GAS TCO2 25.7 mmol.L (22-28)
[2017-04-24 08:58] LABS: HDL CHOLESTEROL 48 mg/dL (29-60)
[2017-04-24 09:00] LABS: BARBITURATES, UR NEGATIVE (NEGATIVE); OPIATES, UR NEGATIVE (NEGATIVE); PHENCYCLIDINE, UR NEGATIVE (NEGATIVE)
[2017-04-24 09:06] LABS: BENZODIAZEPINES, UR POSITIVE (NEGATIVE)
[2017-04-24 09:12] LABS: LDL CHOLESTEROL 50 mg/dL (0-129)
--- NOTE | 2017-04-24 09:15 | PCM.PROC ---
Procedures Attestation:: I certify that I have explained the specified Operation(s) or Procedure(s), risks, benefits and reasonable alternatives to the Patient and/or other person responsible. The opportunity was given to ask questions and all questions answered - Central Line Placement Right Internal Jugular Triple Lumen Catheter Aseptic technique was employed throughout the procedure: Hand Hygiene done prior to procedure, Full sterile barriers (mask, hair cover, sterile gown, sterile gloves), Full body sterile drape, Chloraprep Antiseptic: 30 second prep for IJ or SC sites CVP Time Out Performed: Yes Pt. Placed on Pulse Ox Monitor: Yes Central Line Prep: Chlorhexidine-Alcohol Combination Local Anesthesia Used: Lidocaine 1% Amount of Anesthesia Used (mls): 3 Ultrasound Used for Placement: Yes Central Line Lumen Inserted: triple Central Line Length: 16 cm Post Procedure: Sutured in Place, Good Blood Return, All Ports Aspirated, Flushed, Capped, Sterile Dressing Applied Secured by: Suture Post procedure dressing: Clear vapor permeable, Chlorhexidine disc (Biopatch) Post Procedure X-Ray: Yes Patient Tolerated Procedure: Well, No Complications Immediate Complications: None
[2017-04-24] MEDS ORDERED: Piperacill/Tazo 4.5gm in NS 4.5 GM/100 ML BAG IVPB SCH (10:00)
--- NOTE | 2017-04-24 10:53 | PCM.SEPTIC ---
Sepsis Progress Note - Reassessment Type Date of Evaluation: 04/24/17 Time of Evaluation: 09:45 Reassessment Type: Non-invasive reassessment - Non Invasive Reassessment Were the most recent vital sign reviewed: Yes Vital Sign (Latest): Temp Pulse Resp BP Pulse Ox 100.3 F H 112 H 16 90/71 L 99 04/24/17 05:16 04/24/17 05:16 04/24/17 05:16 04/24/17 05:16 04/24/17 05:16 Cardiovascular: Yes: Regular Rate, Rhythm Respiratory: Yes: Normal Breath Sounds (mechanically vented), Rales (b/l bases) . No: Crackles, Rhonchi Capillary Refill: Normal (Less than 2 sec) Pulses: Normal Radial, Normal Dorsalis Pedis, Normal Posterior Tibialis Skin: Normal Color, Warm, Dry
[2017-04-24] MEDS: Vancomycin 1gm in NS 250ml 1 GM/250 ML BAG IVPB SCH ×2 (11:12→22:30)
[2017-04-24] MEDS: Piperacillin/Tazobact 3.375 gm 100 ML IVPB SCH ×3 (11:13→22:59)
[2017-04-24] MEDS: Enoxaparin 80 mg Syringe SC SCH ×2 (11:49→22:26)
[2017-04-24] MEDS ORDERED: Pneumococcal 23-Valent Vaccine IM ONE (12:31)
[2017-04-24] MEDS ORDERED: Influenza Vaccine 60 mcg/0.5 mL SYR (4YR UP) IM ONE (12:31)
--- NOTE | 2017-04-24 12:40 | RAD ---
HISTORY: ETT Placement COMPARISON: Comparison chest 07/27/2016. FINDINGS: In situ ETT, tip of which lies approximately 12.6 cm above neville. This should be advanced. In situ NGT, the tip of which has not been included on this film though distal aspect does lie well below EG junction. LUNGS: Vague opacities seen in the right mid to lower and to a lesser degree on left perihilar region and lesser left lung base. Developing infiltrate should be excluded followup radiographs. PLEURA: No significant pleural effusion identified, no pneumothorax apparent. CARDIOVASCULAR: Normal. OSSEOUS STRUCTURES: No significant abnormalities. VISUALIZED UPPER ABDOMEN: Normal. OTHER FINDINGS: None. IMPRESSION: ETT lies approximately 12.6 cm above neville and should be advanced. NGT as described. Patchy infiltrate changes suspected in the right mid to lower lung field and left perihilar region and lesser left lung base
[2017-04-24 12:57] LABS: VENOUS BLOOD GAS BASE EXCESS 0.1 mmol/L (0.0-2.0); VENOUS BLOOD GAS PO2 41 mm/Hg (30-55); VENOUS BLOOD PH 7.34 (7.32-7.43)
--- NOTE | 2017-04-24 15:25 | CARD ---
APPROVED REPORT EKG Measurement Heart [id number] [id number] <Conclusion> Normal sinus rhythm Nonspecific ST abnormality Prolonged QT Abnormal ECG
--- NOTE | 2017-04-24 15:36 | CARD ---
APPROVED REPORT EKG Measurement Heart [id number] <Conclusion> Sinus tachycardia Otherwise normal ECG
--- NOTE | 2017-04-24 16:05 | RAD ---
HISTORY: Post intubation /ETT adjustment COMPARISON: Chest dated 04/24/17 FINDINGS: In situ ETT tip of which lies approximately 5.17 cm above neville. NGT is present, the tip of which has not been included on this film though distal aspect does lie well below EG junction LUNGS: Vague patchy opacities seen in the right mid to lower lung field and possibly in the left perihilar and left mid to lower lung field. The central pulmonary vasculature is also slightly increased. PLEURA: No significant pleural effusion identified, no pneumothorax apparent. CARDIOVASCULAR: Normal. OSSEOUS STRUCTURES: No significant abnormalities. VISUALIZED UPPER ABDOMEN: Normal. OTHER FINDINGS: None. IMPRESSION: ETT and NGT as described above. Vague patchy opacities seen in the right mid to lower lung field and possibly in the left perihilar and left mid to lower lung field. The central pulmonary vasculature is also slightly increased.
--- NOTE | 2017-04-24 16:27 | RAD ---
HISTORY: s/p central line COMPARISON: Comparison chest 04/24/2017 at approximately 0430 hours. FINDINGS: In situ ETT, tip of which lies approximately 2.6 cm above neville. . In situ NGT, the tip of which has not been included on this film though distal aspect does lie well below EG junction. No change right IJ central venous line with tip in the SVC. LUNGS: Vague opacity right medial lower lung field may represent atelectasis. . Minor left basilar atelectasis also felt be present. PLEURA: No significant pleural effusion identified, no pneumothorax apparent. CARDIOVASCULAR: Normal. OSSEOUS STRUCTURES: No significant abnormalities. VISUALIZED UPPER ABDOMEN: Normal. OTHER FINDINGS: None. IMPRESSION: Support lines and tubes as above. Vague opacity right medial lower lung field may represent atelectasis. . Minor left basilar atelectasis also felt be present.
--- NOTE | 2017-04-24 20:53 | CON ---
DATE: 04/24/2017 HISTORY OF PRESENT ILLNESS: The patient is a 51-year-old male with COPD who presents being found unconscious by the son. It is unclear how long the patient was unconscious. The patient is on oxycodone as well as Xanax at home. It is unclear how much was taken. Narcan was given the emergency room without significant response. There is no previous cardiac history noted. No other history is available other than the fact that the patient is a smoker. PHYSICAL EXAMINATION: GENERAL: The patient is currently sedated on a ventilator. VITAL SIGNS: Blood pressure is 90/71, heart rate is 110, sinus tachycardia. NECK: Negative JVD. LUNGS: Without rales. HEART: S1, S2. EXTREMITIES: Without edema. EKG shows no acute changes. LABORATORY DATA: Toxicology was positive for benzodiazepine. Chemistries; troponin went from 0.16 to 0.52. BUN and creatinine are unremarkable. The glucose is 190, hemoglobin is 13.8 with white count of 15.2. IMPRESSION: 1. Loss of consciousness of questionable duration. 2. Probable chronic obstructive pulmonary disease. 3. Respiratory failure. 4. Non-ST elevation myocardial infarction which is likely secondary to his prolonged hypotensive episode. 5. History of oxycodone and benzodiazepine administration. Given these findings, we will obtain an echocardiogram to evaluate his LV function. Continue supportive care at this time. Felipe Gallegos MD
--- NOTE | 2017-04-24 21:48 | CON ---
DATE: 04/24/2017 LOCATION: The patient is seen in the ICU. HISTORY OF PRESENT ILLNESS: The patient seen in the ICU, bed #6. The patient seen in the Emergency Room earlier today with questionable overdose, brought to the emergency room by EMS, possible overdose and was found unresponsive by his son and he passed out while in bathroom the day before yesterday. The patient is a poor historian. He is 51-year-old male with degenerative joint disease and chronic pain syndrome on OxyContin and opioid dependence, chronic obstructive lung disease, hyperlipidemia, and BPH. The patient was brought to the Emergency Room for breathing. He was intubated in the Emergency Room for airway protection. PAST MEDICAL HISTORY: Significant for degenerative joint disease, chronic pain and OxyContin and opioid dependence, chronic obstructive lung disease, BPH and hyperlipidemia. PAST SURGICAL HISTORY: Knee surgery and appendectomy. ALLERGIES: THE PATIENT HAS NO KNOWN ALLERGIES. PHYSICAL EXAMINATION: GENERAL: On exam, the patient in bed . VITAL SIGNS: Temperature of 100.3, T-Max is 102.8, respiratory rate of 44 in the Emergency Room, heart rate of 112 and blood pressure is 86/60. HEENT: Unremarkable. NECK: Supple. LUNGS: Decreased breath sounds. HEART: Normal S1 and S2. ABDOMEN: Soft and nontender. No organomegaly. No rebound. No guarding. No masses. LABORATORY DATA: The patient had chest x-ray done yesterday. No report available and another chest x-ray done today, no report available and had CAT scan of the chest and abdomen, bilateral left lower lobe pneumonia, trace pleural effusion. The patient's last hospitalization was in September in [place]. Cultures are pending. The patient also had troponin elevation. ASSESSMENT AND PLAN: A 51-year-old male with severe sepsis, respiratory failure, unresponsive, bilateral community acquired pneumonia. We will treat the patient with Zosyn, vancomycin, and Levaquin and we will follow closely with you. Elder Castellanos MD
[2017-04-25] MEDS: Piperacillin/Tazobact 3.375 gm 100 ML IVPB SCH ×3 (05:15→18:34)
[2017-04-25] MEDS: Propofol 10 mg/ml 1,000 MG/100 ML VIAL IV PRN ×2 (05:22→08:00)
[2017-04-25 05:53] LABS: ARTERIAL BLOOD GAS HCO3 25.7 mmol/L (21-28); ARTERIAL BLOOD GAS HEMOGLOBIN 11.2 g/dL (11.7-17.4); ARTERIAL BLOOD GAS O2 CAPACITY 15.5 mL/dl (16-24); ARTERIAL BLOOD GAS O2 CONTENT 15.4 ML/dl (15-23); ARTERIAL BLOOD GAS O2 SAT 99.4 % (95-98); ARTERIAL BLOOD GAS PCO2 28 mm/Hg (35-45); ARTERIAL BLOOD GAS PH 7.57 (7.35-7.45); ARTERIAL BLOOD GAS TCO2 26.6 mmol.L (22-28)
[2017-04-25 06:07] LABS: BASO # 0.03 K/mm3 (0.0-2.0); BASO % 0.4 % (0.0-3.0); EOS # 0.2 (0.0-0.7); GRAN # 5.17 (1.4-6.5); LYMPH # 1.6 (1.2-3.4); LYMPH % 19.9 % (22.0-35.0); MEAN CELL VOLUME 94.4 fl (80.0-105.0); MEAN CORPUSCULAR HEMOGLOBIN 30.6 pg (25.0-35.0); MEAN CORPUSCULAR HGB CONC 32.4 g/dl (31.0-37.0); MONO # 0.9 (0.1-0.6); MONO % 11.7 % (1.0-6.0); RBC 3.56 10^6/uL (3.5-6.1); RED CELL DISTRIBUTION WIDTH 14.6 % (11.5-14.5); WHITE BLOOD COUNT 7.8 10^3/ul (4.5-11.0)
[2017-04-25 06:17] LABS: HEMOGLOBIN 10.9 g/dL (14.0-18.0)
[2017-04-25 07:27] LABS: ALBUMIN 2.6 g/dL (3.0-4.8); ALT/SGPT 76 U/L (7-56); AST/SGOT 60 U/L (17-59); BLOOD UREA NITROGEN 20 mg/dL (7-21); CALCIUM 7.7 mg/dL (8.4-10.5); GFR AFRICAN-AMERICAN > 60; GFR NON-AFRICAN AMERICAN > 60
[2017-04-25 09:11] LABS: FREE T4 0.83 ng/dL (0.78-2.19)
[2017-04-25] MEDS: levoFLOXacin 750 mg in D5W 150 ML BAG IVPB SCH (09:21)
[2017-04-25] MEDS ORDERED: Vancomycin 1gm in NS 250ml 1 GM/250 ML BAG IVPB SCH (10:00)
--- NOTE | 2017-04-25 10:41 | CP.PCM.PN ---
Subjective - Date & Time of Evaluation Date of Evaluation: 04/25/17 Time of Evaluation: 08:05 - Subjective Subjective: Pt seen and examined, was placed on pressure support, 5/5/40%, tolerated pressure support well for 60 minutes, good TV, RSBI 60s, awake, alert, NAD, following commands. Subsequently extubated to 2LNC, sat 99%, comfortable. Objective - Vital Signs/Intake and Output Vital Signs (last 24 hours): Temp Pulse Resp BP Pulse Ox 98.6 F 63 20 96/62 L 96 04/25/17 05:30 04/25/17 05:30 04/24/17 07:41 04/25/17 05:00 04/25/17 05:30 Intake and Output: 04/25/17 04/25/17 06:59 18:59 Intake Total 1780 100 Output Total 700 Balance 1080 100 - Medications Medications: Current Medications Enoxaparin Sodium (Lovenox) 80 mg SC Q12H [facility] PRN Reason: Protocol Last Admin: 04/24/17 22:26 Dose: 80 mg Propofol (Diprivan) 1,000 mg in 100 mls @ 2.191 mls/hr IV .Q24H PRN; Protocol; 5 MCG/KG/MIN PRN Reason: TITRATE PER MD ORDER Last Admin: 04/25/17 08:00 Dose: 30 mcg/kg/min, 13.145 mls/hr Sodium Chloride (Sodium Chloride 0.9%) 1,000 mls @ 100 mls/hr IV .Q10H [facility] Last Admin: 04/24/17 22:27 Dose: 100 mls/hr Vancomycin HCl (Vancomycin 1gm) 1 gm in 250 mls @ 167 mls/hr IVPB Q12H [facility]ILA PRN Reason: Protocol Stop: 05/03/17 10:46 Last Admin: 04/24/17 22:30 Dose: 167 mls/hr Piperacillin Sod/Tazobactam Sod (Zosyn 3.375 In Ns 100ml) 100 mls @ 200 mls/hr IVPB Q6 [facility]ILA PRN Reason: Protocol Stop: 05/03/17 12:01 Last Admin: 04/25/17 05:15 Dose: 200 mls/hr Potassium Chloride (Potassium Chloride 10 Meq/100 Ml) 10 meq in 100 mls @ 50 mls/hr IVPB Q2H [facility] Stop: 04/25/17 11:44 Last Admin: 04/25/17 09:26 Dose: 50 mls/hr Levofloxacin/Dextrose (Levaquin 750mg) 750 mg IVPB DAILY [facility] Stop: 05/04/17 10:01 Last Admin: 04/25/17 09:21 Dose: 750 mg Nicotine (Nicoderm Cq) 1 patch TD DAILY [facility] Last Admin: 04/25/17 09:43 Dose: 1 patch Pantoprazole Sodium (Protonix Inj) 40 mg IVP DAILY [facility] Last Admin: 04/25/17 09:22 Dose: 40 mg - Labs Labs: 04/25/17 05:00 04/25/17 05:00 PT 11.4 SECONDS (9.4-12.5) 04/24/17 03:00 INR 1.04 (0.93-1.08) 04/24/17 03:00 APTT 28.8 Seconds (25.1-36.5) 04/24/17 03:00 - Constitutional Appears: Well, Non-toxic, No Acute Distress - ENT Exam ENT Exam: Mucous Membranes Moist - Neck Exam Neck Exam: Normal Inspection - Respiratory Exam Respiratory Exam: Clear to Ausculation Bilateral, NORMAL BREATHING PATTERN - Cardiovascular Exam Cardiovascular Exam: REGULAR RHYTHM, +S1, +S2 - GI/Abdominal Exam GI & Abdominal Exam: Soft, Normal Bowel Sounds - Extremities Exam Extremities Exam: Full ROM - Neurological Exam Neurological Exam: Alert, Awake, Oriented x3 Neuro motor strength exam: Left Upper Extremity: 5, Right Upper Extremity: 5, Left Lower Extremity: 5, Right Lower Extremity: 5 - Psychiatric Exam Psychiatric exam: Normal Mood Assessment and Plan - Assessment and Plan (Free Text) Assessment: 51yo male a/w respiratory failure 2/2 AMS. AMS, resolved Respiratory failure, resolved PNA Opiate Abuse COPD - currently afebrile, HD stable, comfortable on 2LNC, sat 99%, extubated, doing well, awake, alert, NAD - CT head neg - CT Chest with PNA - ID following Recommend: - supp o2 as needed - Duonebs PRN - Nicotine Patch - Antibiotics as per ID - follow up cultures, procal, sputum culture - repeat CE - ECHO - follow up cardiology - Urine Lg, Strep - BP control - Pain control, Oxycodone IR PRN - OOB to chair - GI ppx - DVT ppx - FS control - Stable critical care time 35 minutes
[2017-04-25] MEDS: Aspirin 325 mg EC Tablets PO SCH (11:01)
[2017-04-25] MEDS: Sodium Chloride 0.9% 1,000 ML IV SCH ×2 (11:06→22:50)
[2017-04-25] MEDS: Vancomycin 1gm in NS 250ml 1 GM/250 ML BAG IVPB SCH ×2 (11:11→22:49)
[2017-04-25] MEDS ORDERED: Benzocaine/Menthol (Cepacol) Lozenge MT PRN (11:38)
--- NOTE | 2017-04-25 13:10 | PN ---
DATE: 04/25/2017 CARDIOLOGY FOLLOWUP NOTE SUBJECTIVE: The patient was extubated today. He is awake. He has no memory of what happened to him. His cardiac risk factors include a history of catheterization in the past, which shows nonobstructive CAD. He continues to smoke a pack a day. PHYSICAL EXAMINATION: VITAL SIGNS: Blood pressure is 96/62 and heart rate is in the 60s. NECK: Negative JVD. LUNGS: With bilateral rhonchi. HEART: Reveal S1, S2. EXTREMITIES: Without edema. LABORATORY DATA: Hemoglobin is 10.9. BUN and creatinine are unremarkable. IMPRESSION: 1. Status post syncope. 2. [id number] myocardial infarction. 3. High probability for coronary artery disease. 4. Chronic obstructive pulmonary disease. 5. Nicotine addiction. 6. Anemia. PLAN: Given these findings, I have discussed with the patient and the entire family about his high risk for coronary artery disease. We will start the patient on aspirin and Plavix and schedule for cardiac catheterization in the morning, which the patient is agreeable. Felipe Gallegos MD
--- NOTE | 2017-04-25 13:25 | CP.PCM.PN ---
<Markel Penn - Last Filed: 04/25/17 13:22> Subjective - Date & Time of Evaluation Date of Evaluation: 04/25/17 Time of Evaluation: 13:22 - Subjective Subjective: Medicine Progress Note Pt seen and examined at bedside. No acute overnight events. Pt is now extubated. Pt states he has some throat irritation and back pain. Pt denies CP, SOB, nausea, vomiting, diarrhea, abdominal pain, fever, chills, or NGAEL. Objective - Vital Signs/Intake and Output Vital Signs (last 24 hours): Temp Pulse Resp BP Pulse Ox 98.6 F 63 20 96/62 L 96 04/25/17 05:30 04/25/17 05:30 04/24/17 07:41 04/25/17 05:00 04/25/17 05:30 Intake and Output: 04/25/17 04/25/17 06:59 18:59 Intake Total 1780 100 Output Total 700 Balance 1080 100 - Medications Medications: Current Medications Aspirin (Ecotrin) 325 mg PO DAILY [facility] Last Admin: 04/25/17 11:01 Dose: 325 mg Benzocaine/Menthol (Cepacol Sore Throat) 1 catarino MT Q2H PRN PRN Reason: Sore Throat Last Admin: 04/25/17 12:54 Dose: 1 catarino Propofol (Diprivan) 1,000 mg in 100 mls @ 2.191 mls/hr IV .Q24H PRN; Protocol; 5 MCG/KG/MIN PRN Reason: TITRATE PER MD ORDER Last Admin: 04/25/17 08:00 Dose: 30 mcg/kg/min, 13.145 mls/hr Sodium Chloride (Sodium Chloride 0.9%) 1,000 mls @ 100 mls/hr IV .Q10H [facility] Last Admin: 04/25/17 11:06 Dose: 100 mls/hr Vancomycin HCl (Vancomycin 1gm) 1 gm in 250 mls @ 167 mls/hr IVPB Q12H [facility] PRN Reason: Protocol Stop: 05/03/17 10:46 Last Admin: 04/25/17 11:11 Dose: 167 mls/hr Piperacillin Sod/Tazobactam Sod (Zosyn 3.375 In Ns 100ml) 100 mls @ 200 mls/hr IVPB Q6 [facility]ILA PRN Reason: Protocol Stop: 05/03/17 12:01 Last Admin: 04/25/17 12:46 Dose: 200 mls/hr Levofloxacin/Dextrose (Levaquin 750mg) 750 mg IVPB DAILY [facility] Stop: 05/04/17 10:01 Last Admin: 04/25/17 09:21 Dose: 750 mg Nicotine (Nicoderm Cq) 1 patch TD DAILY [facility] Last Admin: 04/25/17 09:43 Dose: 1 patch Pantoprazole Sodium (Protonix Inj) 40 mg IVP DAILY [facility] Last Admin: 04/25/17 09:22 Dose: 40 mg - Labs Labs: 04/25/17 05:00 04/25/17 05:00 PT 11.4 SECONDS (9.4-12.5) 04/24/17 03:00 INR 1.04 (0.93-1.08) 04/24/17 03:00 APTT 28.8 Seconds (25.1-36.5) 04/24/17 03:00 - Constitutional Appears: No Acute Distress - Head Exam Head Exam: NORMAL INSPECTION - Eye Exam Eye Exam: Normal appearance - ENT Exam ENT Exam: Normal Exam - Neck Exam Neck Exam: Normal Inspection - Respiratory Exam Respiratory Exam: Clear to Ausculation Bilateral. absent: Rales, Rhonchi, Wheezes - Cardiovascular Exam Cardiovascular Exam: RRR, +S1, +S2. absent: Gallop, Rubs, Murmur - GI/Abdominal Exam GI & Abdominal Exam: Soft. absent: Distended, Guarding, Tenderness, Rebound - Extremities Exam Extremities Exam: Normal Inspection - Back Exam Back Exam: NORMAL INSPECTION - Neurological Exam Neurological Exam: Alert, Awake, Oriented x3 - Psychiatric Exam Psychiatric exam: Normal Affect, Normal Mood - Skin Skin Exam: Dry, Intact, Normal Color, Warm Assessment and Plan - Assessment and Plan (Free Text) Assessment: 51 year old male, whose pmh degenerative joint disease, chronic pain on Oxycontin, opiate dependence, COPD, HLD and BPH, who presents to the ED brought in by EMS due to being unresponsive. Patient given 2 doses of narcan by EMS. In the ED patient was intubated for respiratory failure and airway protection. Code sepsis was called for lactate of 5.9, leukocytosis and fever with possible source of aspiration pneumonia. Pt found to have to have elevated troponin. Plan: 1. Sepsis 2/2 pneumonia - AMS, respiratory failure resolved - Extubated - Lactate of 5.9 , leukocytoisis, febrile, tachycardia - Cont NS @ 100 - CXR shows Possible aspiration pneumonia - Chest CT bilateral R > L lower lobe pneumonai - HIV, flu, legionella negative - ID consulted for recs Vanc, zosyn, levaquin - F/u cultures 2. NSTEMI - Troponin 0.16, 0.52 - EKG showed tachycardia with no ST wave changes - F/u Echo - Cardio consulted ASA and plavix Cardiac cath in AM 3. Unintentional weight loss - Significant weight loss over last year and back pain - History of pancreatic CA in family - Was scheduled for colonscopy prior to hospitalization - Will consider CT abd/pelv with contrast after cardiac cath 4. Subclinical Hyperthyroidism - Decreased TSH, normal free T4 - Cont to monitor 5. Hypokalemia - Repleted - Cont to monitor and replete as needed 6. Transaminitis - Elevated LFT's - F/u hep panel 7. Hx of COPD - Duonebs PRN 8. HLD - Lipids WNL GI/DVT ppx - Protonix and SCDs Pt seen and discussed in detail with Dr. Mooney. Jacob Penn, PGY1 <Coreen Mooney - Last Filed: 04/25/17 18:04> Objective - Vital Signs/Intake and Output Vital Signs (last 24 hours): Temp Pulse Resp BP Pulse Ox 98.6 F 71 20 96/62 L 96 04/25/17 05:30 04/25/17 14:00 04/24/17 07:41 04/25/17 05:00 04/25/17 05:30 Intake and Output: 04/25/17 04/25/17 06:59 18:59 Intake Total 1780 100 Output Total 700 Balance 1080 100 - Medications Medications: Current Medications Aspirin (Ecotrin) 325 mg PO DAILY [facility] Last Admin: 04/25/17 11:01 Dose: 325 mg Benzocaine/Menthol (Cepacol Sore Throat) 1 catarino MT Q2H PRN PRN Reason: Sore Throat Last Admin: 04/25/17 12:54 Dose: 1 catarino Propofol (Diprivan) 1,000 mg in 100 mls @ 2.191 mls/hr IV .Q24H PRN; Protocol; 5 MCG/KG/MIN PRN Reason: TITRATE PER ORDER Last Admin: 04/25/17 08:00 Dose: 30 mcg/kg/min, 13.145 mls/hr Sodium Chloride (Sodium Chloride 0.9%) 1,000 mls @ 100 mls/hr IV .Q10H [facility] Last Admin: 04/25/17 11:06 Dose: 100 mls/hr Vancomycin HCl (Vancomycin 1gm) 1 gm in 250 mls @ 167 mls/hr IVPB Q12H [facility] PRN Reason: Protocol Stop: 05/03/17 10:46 Last Admin: 04/25/17 11:11 Dose: 167 mls/hr Piperacillin Sod/Tazobactam Sod (Zosyn 3.375 In Ns 100ml) 100 mls @ 200 mls/hr IVPB Q6 [facility]ILA PRN Reason: Protocol Stop: 05/03/17 12:01 Last Admin: 04/25/17 12:46 Dose: 200 mls/hr Levofloxacin/Dextrose (Levaquin 750mg) 750 mg IVPB DAILY [facility] Stop: 05/04/17 10:01 Last Admin: 04/25/17 09:21 Dose: 750 mg Nicotine (Nicoderm Cq) 1 patch TD DAILY [facility] Last Admin: 04/25/17 09:43 Dose: 1 patch Pantoprazole Sodium (Protonix Inj) 40 mg IVP DAILY [facility] Last Admin: 04/25/17 09:22 Dose: 40 mg - Labs Labs: 04/25/17 05:00 04/25/17 05:00 PT 11.4 SECONDS (9.4-12.5) 04/24/17 03:00 INR 1.04 (0.93-1.08) 04/24/17 03:00 APTT 28.8 Seconds (25.1-36.5) 04/24/17 03:00 Attending/Attestation - Attestation I have personally seen and examined this patient.: Yes I have fully participated in the care of the patient.: Yes I have reviewed all pertinent clinical information, including history, physical exam and plan: Yes Notes (Text): I have seen and examined the patient at bedside. Agree with the above note with the following additions/ exceptions: Briefly this is 51 year old male with history of DJD, Chronic pain syndrome, lumbar herniated disc disease, COPD, dyslipidemia, tobacco use, narcotic dependence, BPH who was brought by EMS for evaluation of unresponsiveness which can be secondary to severe sepsis, NSTEMI or drug overdose . He was intubated upon arrival and had minimal response to narcan. Code sepsis was called upon admission. He was found to have bilateral pneumonia and NSTEMI. Patient got extubated this morning. He is awake, alert, oriented to time, place and person. He does not have any gross focal deficits. Able to converse properly and provided detailed history. Reports being sick with cough and also had diarrhea for 1 week. He is on vanc, zosyn and levaquin for his b/l pneumonia. Further work up pending. He has been on lovenox, aspirin and plavix. Plan for cardiac cath in am. He also reports unintentional weight loss and back pain. CT scan abdomen was done in the past without any contrast. I don't want to order CT w contrast as he is scheduled for cardiac cath. We will discuss with PMD Dr Joe. Patient also has subclinical hyperthyroidism. Recommend to repeat TFTs in 4-6 weeks. He has elevated LFT's which can be multif actorial. Hep panel pending. Patient also has slight proteinuria and hematuria which can be due to Daniel insertion. Recommend repeating UA. Plan was discussed in detail with patients son and the mother at the bedside. Upon discharge patient will follow up with Dr Joe. Dr Coreen Mooney
--- NOTE | 2017-04-25 14:42 | PN ---
DATE: 04/25/2017 SUBJECTIVE: The patient is seen earlier today in room 128, bed six. The patient remains intubated on a ventilator, unresponsive. PHYSICAL EXAMINATION: VITAL SIGNS: Temperature is 98, blood pressure is 103/70, respiratory rate on a vent, heart rate of 63. HEENT: Reveals ET tube in place. NECK: Supple. LUNGS: Have decreased breath sounds. HEART: Normal S1, S2. ABDOMEN: Soft, nontender. LABORATORY DATA: Reveals a white count of 7.8, hemoglobin of 10 and platelets of 142. Chemistries reveals a BUN of 20, creatinine of 0.7. Troponin is 0.52, initial one was 0.16 and the patient's procalcitonin is reported to be at 4.15 and microbiology reveals the urine cultures, negative blood cultures are negative and the patient's chest x-ray is noted. The patient had a CT scan of the abdomen and pelvis and CT scan of the chest. Bilateral right greater than left lower lobe pneumonia on CT scan. Dr. Naveen Chavez's progress note from today is reviewed. Dr. Felipe Gallegos's consultation from yesterday is reviewed. ASSESSMENT AND PLAN: A 51-year-old male was seen this morning in the ICU, bed #6 with history of chronic pain syndrome and possible overdose with degenerative joint disease and chronic pain syndrome, on OxyContin and opiate dependence, chronic obstructive lung disease, hyperlipidemia and BPH who is now with severe sepsis with respiratory failure, intubated on a ventilator, bilateral community-acquired pneumonia, was found unresponsive at home with an acute non-ST elevation myocardial infarction with elevated procalcitonin, negative blood cultures, negative urine cultures. Currently, on Levaquin, vancomycin and Zosyn. Overall prognosis quite poor for this patient. We will follow closely with you. Pending further workup. The patient's HIV is negative. Influenza is negative and urine for Legionella is negative and opiate screen is negative. The patient does have an elevated procalcitonin. Elder Castellanos MD
[2017-04-26] MEDS: Piperacillin/Tazobact 3.375 gm 100 ML IVPB SCH ×5 (00:16→23:05)
[2017-04-26] MEDS: Sodium Chloride 0.9% 1,000 ML IV SCH ×3 (01:20→16:20)
[2017-04-26 07:46] LABS: BASO # 0.02 K/mm3 (0.0-2.0); BASO % 0.4 % (0.0-3.0); EOS # 0.1 (0.0-0.7); EOS % 2.2 % (1.5-5.0); GRAN # 3.31 (1.4-6.5); GRAN % 59.7 % (50.0-68.0); HEMOGLOBIN 10.1 g/dL (14.0-18.0); LYMPH # 1.3 (1.2-3.4); LYMPH % 22.9 % (22.0-35.0); MEAN CELL VOLUME 92.1 fl (80.0-105.0); MEAN CORPUSCULAR HEMOGLOBIN 30.6 pg (25.0-35.0); MEAN CORPUSCULAR HGB CONC 33.2 g/dl (31.0-37.0); MEAN PLATELET VOLUME 11.2 fl (7.0-11.0); MONO # 0.8 (0.1-0.6); MONO % 14.8 % (1.0-6.0); RBC 3.3 10^6/uL (3.5-6.1); RED CELL DISTRIBUTION WIDTH 14.1 % (11.5-14.5); WHITE BLOOD COUNT 5.5 10^3/ul (4.5-11.0)
[2017-04-26 07:50] LABS: ALB/GLOB RATIO 1.1 (1.1-1.8); ALBUMIN 2.7 g/dL (3.0-4.8); ALT/SGPT 67 U/L (7-56); AST/SGOT 55 U/L (17-59); BLOOD UREA NITROGEN 15 mg/dL (7-21); CALCIUM 7.9 mg/dL (8.4-10.5); GFR AFRICAN-AMERICAN > 60; GFR NON-AFRICAN AMERICAN > 60
[2017-04-26] MEDS ORDERED: Potassium Chloride 20 mEq ER Tab PO STA (08:40)
--- NOTE | 2017-04-26 08:51 | PN ---
DATE: 04/24/2017 ASSISTANT COMMUNITY DIRECTOR NOTE SUBJECTIVE: The patient is on the ventilator with FiO2 of 100% and unresponsive at this time. The patient is getting sedation. He presented with respiratory failure as well as possible drug overdose and seems to have pneumonia and possible sepsis. PHYSICAL EXAMINATION: VITAL SIGNS: Note that his temperature is 100.3, pulse is 112, respirations are 16, BP is 90/71, and O2 saturation is 99%. HEENT: Head is atraumatic, normocephalic. Eyes are reactive to light. Ears, nose and throat seemed to be within normal limits. NECK: Supple. No JVD. No thyroid enlargement or lymph nodes. HEART: Has regular rate and rhythm. Normal S1 and S2. LUNGS: Reveal mild rhonchi bilaterally. ABDOMEN: Soft. Decreased bowel sounds. GENITALIA AND RECTAL: Deferred. MUSCULOSKELETAL: No joint deformities. EXTREMITIES: Reveal trace lower extremity edema. NEUROLOGIC: The patient is sedated on the ventilator. LABORATORY DATA: As far as laboratories are concerned, his white count is 15.2, hemoglobin is 13.8, and hematocrit is 42.5 with platelets of 192,000. Arterial blood gas reveals pH of 7.29, pCO2 of 57, and pO2 of 309, this is on 100% FiO2. His sodium is 144, potassium is 4.2, chloride is 100, CO2 of 31 with BUN of 21, creatinine of 1.1, and glucose of 190. The patient's troponin is elevated at 0.16. As far as CT scan of the chest, it reveals that there is bilateral lower lobe pneumonia or should I say infiltrates and trace of pleural effusions. IMPRESSION AND PLAN: This patient has pneumonia, bilateral lower lobe, with trace of pleural effusions, has possible sepsis with hypotension. The patient presents with possible drug overdose. The patient has a history of DJD and is on OxyContin as well as Xanax and possibly overdosed on those medications. The patient has a history of chronic obstructive pulmonary disease, is noted to have hypercapnic respiratory failure. He has history of hyperlipidemia and benign prostatic hypertrophy. Note that the patient's troponins are elevated. We must rule out myocardial infarction and he is noted to have hypercapnia. As far as our plan, we will continue with the ventilator support and decrease the FiO2 as the patient tolerates. We will follow his chest x-ray and arterial blood gases closely and the patient is on propofol and if need be to maintain appropriate blood pressure, we will start Levophed. The patient is getting Protonix as well as IV fluids and consult for ID has been called Dr. Castellanos. We will instruct as for appropriate antibiotics. At this time, he is on Zosyn and vancomycin. The patient will get Tylenol for his temperature and we will start bronchodilators of DuoNeb and continue to treat aggressively along with the other consultants and the primary care doctor. John Betts MD
[2017-04-26 09:18] LABS: MAGNESIUM 2.2 mg/dL (1.7-2.2)
[2017-04-26] MEDS: Aspirin 325 mg EC Tablets PO SCH (10:31)
[2017-04-26] MEDS ORDERED: Lidocaine 2% Inj (20ml) ONE (11:49)
[2017-04-26] MEDS ORDERED: Iodixanol 320 MG/ML 100 ML BOTTLE IV ONE (11:50)
[2017-04-26] MEDS ORDERED: Iodixanol 320 MG/ML 200 ML BOTTLE IV ONE (11:50)
[2017-04-26] MEDS ORDERED: Iohexol 350mgl/ml 50 ML ONE (11:50)
[2017-04-26] MEDS ORDERED: HEPARIN SODIUM/NS 2,000 ML IV ONE (11:51)
[2017-04-26] MEDS ORDERED: Phenylephrine 10 mg/ml Inj ONE (11:58)
[2017-04-26] MEDS ORDERED: Midazolam 2 MG/2 ML VIAL ONE ×3 (12:19→12:42)
[2017-04-26 12:30] LABS: HEPATITIS B SURFACE AG NEGATIVE (NEGATIVE)
[2017-04-26 12:36] LABS: HEPATITIS A IGM NEGATIVE (NEGATIVE); HEPATITIS B CORE AB Negative (NEGATIVE)
--- NOTE | 2017-04-26 12:39 | CP.PCM.PN ---
<Markel Penn - Last Filed: 04/26/17 12:34> Subjective - Date & Time of Evaluation Date of Evaluation: 04/26/17 Time of Evaluation: 12:35 - Subjective Subjective: Medicine Progress Note Pt seen and examined at bedside. Pt states that he has had drops of blood coming from his penis since removal of herrera. He states that he has had some difficulty urinating. Pt is anxious. Pt denied CP, SOB, nausea, vomiting, diarrhea, abdominal pain, fever, chills, NAGEL or dizziness. Objective - Vital Signs/Intake and Output Vital Signs (last 24 hours): Temp Pulse Resp BP Pulse Ox 98.3 F 47 L 18 138/79 96 04/26/17 08:18 04/26/17 08:18 04/26/17 08:18 04/26/17 08:18 04/26/17 08:18 Intake and Output: 04/26/17 04/26/17 06:59 18:59 Intake Total 2400 Balance 2400 - Medications Medications: Current Medications Aspirin (Ecotrin) 325 mg PO DAILY [facility] Last Admin: 04/26/17 10:31 Dose: 325 mg Benzocaine/Menthol (Cepacol Sore Throat) 1 catarino MT Q2H PRN PRN Reason: Sore Throat Last Admin: 04/25/17 12:54 Dose: 1 catarino Sodium Chloride (Sodium Chloride 0.9%) 1,000 mls @ 100 mls/hr IV .Q10H [facility] Last Admin: 04/26/17 06:28 Dose: 100 mls/hr Vancomycin HCl (Vancomycin 1gm) 1 gm in 250 mls @ 167 mls/hr IVPB Q12H [facility] PRN Reason: Protocol Stop: 05/03/17 10:46 Last Admin: 04/25/17 22:49 Dose: 167 mls/hr Piperacillin Sod/Tazobactam Sod (Zosyn 3.375 In Ns 100ml) 100 mls @ 200 mls/hr IVPB Q6 [facility] PRN Reason: Protocol Stop: 05/03/17 12:01 Last Admin: 04/26/17 06:28 Dose: 200 mls/hr Potassium Chloride (Potassium Chloride 10 Meq/100 Ml) 10 meq in 100 mls @ 50 mls/hr IVPB Q2H [facility] Stop: 04/26/17 16:44 Last Admin: 04/26/17 09:25 Dose: 50 mls/hr Potassium Phosphate 15 mmole/ (Sodium Chloride) 255 mls @ 42.5 mls/hr IVPB ONCE ONE Stop: 04/26/17 15:29 Levofloxacin/Dextrose (Levaquin 750mg) 750 mg IVPB DAILY [facility] Stop: 05/04/17 10:01 Last Admin: 04/25/17 09:21 Dose: 750 mg Nicotine (Nicoderm Cq) 1 patch TD DAILY [facility] Last Admin: 04/25/17 09:43 Dose: 1 patch Pantoprazole Sodium (Protonix Inj) 40 mg IVP DAILY [facility] Last Admin: 04/25/17 09:22 Dose: 40 mg - Labs Labs: 04/26/17 06:51 04/26/17 06:51 PT 11.4 SECONDS (9.4-12.5) 04/24/17 03:00 INR 1.04 (0.93-1.08) 04/24/17 03:00 APTT 28.8 Seconds (25.1-36.5) 04/24/17 03:00 - Constitutional Appears: No Acute Distress - Eye Exam Eye Exam: Normal appearance - ENT Exam ENT Exam: Normal Exam - Respiratory Exam Respiratory Exam: Clear to Ausculation Bilateral. absent: Rales, Rhonchi, Wheezes - Cardiovascular Exam Cardiovascular Exam: RRR, +S1, +S2. absent: Gallop, Rubs, Murmur - GI/Abdominal Exam GI & Abdominal Exam: Soft. absent: Distended, Guarding, Tenderness, Rebound - Exam Additional comments: minimal blood observed at penile meatus - Extremities Exam Extremities Exam: Normal Inspection - Neurological Exam Neurological Exam: Alert, Awake, Oriented x3 - Psychiatric Exam Psychiatric exam: Normal Affect, Normal Mood - Skin Skin Exam: Dry, Intact, Warm Assessment and Plan - Assessment and Plan (Free Text) Assessment: 51 year old male, whose pmh degenerative joint disease, chronic pain on Oxycontin, opiate dependence, COPD, HLD and BPH, who presents to the ED brought in by EMS due to being unresponsive. Admitted due to respiratory failure, sepsis 2/2 pneumonia, and NSTEMI. Plan: 1. Sepsis 2/2 pneumonia; sepsis resolved - AMS, respiratory failure resolved - Extubated - ID consulted for recs Vanc, zosyn, levaquin - Afebrile, no leukocytosis - Sputum culture positive for Staph aureus, f/u sensitivities - Blood and urine cultures negative - CXR shows Possible aspiration pneumonia - Chest CT bilateral R > L lower lobe pneumonia - HIV, flu, legionella negative - Cont NS @ 100 2. NSTEMI - Troponin 0.16, 0.52 - EKG showed tachycardia with no ST wave changes - F/u Echo - Cardio consulted ASA and plavix F/u cardiac cath results 3. Unintentional weight loss - Significant weight loss over last year and back pain - History of pancreatic CA in family - Was scheduled for colonscopy prior to hospitalization - Will consider CT abd/pelv with contrast after cardiac cath 4. Subclinical Hyperthyroidism - Decreased TSH, normal free T4 - Cont to monitor 5. Hypokalemia - K 3.0 - Repleted - Cont to monitor and replete as needed 6. Hypophosphatemia - Phos 1.3 - Repleted - Cont to monitor and replete as needed 7. Transaminitis - Elevated LFT's - F/u hep panel 8. Hx of COPD - Duonebs PRN 9. HLD - Lipids WNL GI/DVT ppx - Protonix and SCDs Pt seen and discussed in detail with Dr. Mooney. Jacob Penn, PGY1 <Coreen Mooney B - Last Filed: 04/26/17 14:43> Objective - Vital Signs/Intake and Output Vital Signs (last 24 hours): Temp Pulse Resp BP Pulse Ox 98.5 F 43 L 16 138/79 96 04/26/17 13:50 04/26/17 13:50 04/26/17 13:50 04/26/17 13:50 04/26/17 08:18 Intake and Output: 04/26/17 04/26/17 06:59 18:59 Intake Total 2400 Balance 2400 - Medications Medications: Current Medications Aspirin (Ecotrin) 81 mg PO DAILY [facility] Benzocaine/Menthol (Cepacol Sore Throat) 1 catarino MT Q2H PRN PRN Reason: Sore Throat Last Admin: 04/25/17 12:54 Dose: 1 catarino Sodium Chloride (Sodium Chloride 0.9%) 1,000 mls @ 100 mls/hr IV .Q10H [facility] Stop: 04/26/17 18:00 Last Admin: 04/26/17 06:28 Dose: 100 mls/hr Vancomycin HCl (Vancomycin 1gm) 1 gm in 250 mls @ 167 mls/hr IVPB Q12H [facility] PRN Reason: Protocol Stop: 05/03/17 10:46 Last Admin: 04/25/17 22:49 Dose: 167 mls/hr Piperacillin Sod/Tazobactam Sod (Zosyn 3.375 In Ns 100ml) 100 mls @ 200 mls/hr IVPB Q6 [facility] PRN Reason: Protocol Stop: 05/03/17 12:01 Last Admin: 04/26/17 06:28 Dose: 200 mls/hr Potassium Chloride (Potassium Chloride 10 Meq/100 Ml) 10 meq in 100 mls @ 50 mls/hr IVPB Q2H [facility] Stop: 04/26/17 16:44 Last Admin: 04/26/17 14:02 Dose: 50 mls/hr Potassium Phosphate 15 mmole/ (Sodium Chloride) 255 mls @ 42.5 mls/hr IVPB ONCE ONE Stop: 04/26/17 15:29 Levofloxacin/Dextrose (Levaquin 750mg) 750 mg IVPB DAILY [facility] Stop: 05/04/17 10:01 Last Admin: 04/25/17 09:21 Dose: 750 mg Nicotine (Nicoderm Cq) 1 patch TD DAILY [facility] Last Admin: 04/26/17 14:14 Dose: 1 patch Pantoprazole Sodium (Protonix Inj) 40 mg IVP DAILY [facility] Last Admin: 04/26/17 14:14 Dose: 40 mg - Labs Labs: 04/26/17 06:51 04/26/17 06:51 PT 11.4 SECONDS (9.4-12.5) 04/24/17 03:00 INR 1.04 (0.93-1.08) 04/24/17 03:00 APTT 28.8 Seconds (25.1-36.5) 04/24/17 03:00 Attending/Attestation - Attestation I have personally seen and examined this patient.: Yes I have fully participated in the care of the patient.: Yes I have reviewed all pertinent clinical information, including history, physical exam and plan: Yes Notes (Text): I have seen and examined the patient at bedside. Agree with the above note with the following additions/ exceptions: Briefly this is 51 year old male with history of DJD, Chronic pain syndrome, lumbar herniated disc disease, COPD, dyslipidemia, tobacco use, narcotic dependence, BPH who was brought by EMS for evaluation of unresponsiveness which can be secondary to severe sepsis, NSTEMI or drug overdose . He was intubated upon arrival and had minimal response to narcan. Code sepsis was called upon admission. He was found to have bilateral pneumonia and NSTEMI. Patient got extubated yesterday. He is awake, alert, oriented to time, place and person. He does not have any gross focal deficits. Able to converse properly and provided detailed history. Reports being sick with cough and also had diarrhea for 1 week. He is on vanc, zosyn and levaquin for his b/l pneumonia. Sputum culture positive for staph aureus. Further work up pending. He has been on lovenox, aspirin and plavix. Plan for cardiac cath today. He also reports unintentional weight loss and back pain. CT scan abdomen was done in the past without any contrast. I don't want to order CT w contrast as he is scheduled for cardiac cath. We will discuss with PMD Dr Joe. Patient also has subclinical hyperthyroidism. Recommend to repeat TFTs in 4-6 weeks. He has elevated LFT's which can be multifactorial. Hep panel negative. Patient also has slight proteinuria and hematuria which can be due to Herrera insertion. Recommend repeating UA. Hypokalemia and hypophosphatemia was replaced. Plan was discussed in detail with patients son and the mother at the bedside. Upon discharge patient will follow up with Dr Joe. Dr Coreen Mooney
[2017-04-26 12:48] LABS: HEPATITIS C ANTIBODY Negative (NEGATIVE)
--- NOTE | 2017-04-26 12:57 | CP.PCM.PN ---
Subjective - Date & Time of Evaluation Date of Evaluation: 04/26/17 Time of Evaluation: 10:45 - Subjective Subjective: Still with some shortness of breath, complaining that his antibiotic is not running but nurse explained to her that the antibiotics are running. No fevers overnight. Objective - Vital Signs/Intake and Output Vital Signs (last 24 hours): Temp Pulse Resp BP Pulse Ox 98.3 F 47 L 18 138/79 96 04/26/17 08:18 04/26/17 08:18 04/26/17 08:18 04/26/17 08:18 04/26/17 08:18 Intake and Output: 04/26/17 04/26/17 06:59 18:59 Intake Total 2400 Balance 2400 - Medications Medications: Current Medications Aspirin (Ecotrin) 325 mg PO DAILY [facility] Last Admin: 04/26/17 10:31 Dose: 325 mg Benzocaine/Menthol (Cepacol Sore Throat) 1 catarino MT Q2H PRN PRN Reason: Sore Throat Last Admin: 04/25/17 12:54 Dose: 1 catarino Sodium Chloride (Sodium Chloride 0.9%) 1,000 mls @ 100 mls/hr IV .Q10H [facility] Last Admin: 04/26/17 06:28 Dose: 100 mls/hr Vancomycin HCl (Vancomycin 1gm) 1 gm in 250 mls @ 167 mls/hr IVPB Q12H [facility] PRN Reason: Protocol Stop: 05/03/17 10:46 Last Admin: 04/25/17 22:49 Dose: 167 mls/hr Piperacillin Sod/Tazobactam Sod (Zosyn 3.375 In Ns 100ml) 100 mls @ 200 mls/hr IVPB Q6 [facility] PRN Reason: Protocol Stop: 05/03/17 12:01 Last Admin: 04/26/17 06:28 Dose: 200 mls/hr Potassium Chloride (Potassium Chloride 10 Meq/100 Ml) 10 meq in 100 mls @ 50 mls/hr IVPB Q2H [facility] Stop: 04/26/17 16:44 Last Admin: 04/26/17 09:25 Dose: 50 mls/hr Potassium Phosphate 15 mmole/ (Sodium Chloride) 255 mls @ 42.5 mls/hr IVPB ONCE ONE Stop: 04/26/17 15:29 Levofloxacin/Dextrose (Levaquin 750mg) 750 mg IVPB DAILY [facility] Stop: 05/04/17 10:01 Last Admin: 04/25/17 09:21 Dose: 750 mg Nicotine (Nicoderm Cq) 1 patch TD DAILY [facility] Last Admin: 04/25/17 09:43 Dose: 1 patch Pantoprazole Sodium (Protonix Inj) 40 mg IVP DAILY [facility] Last Admin: 04/25/17 09:22 Dose: 40 mg - Labs Labs: 04/26/17 06:51 04/26/17 06:51 PT 11.4 SECONDS (9.4-12.5) 04/24/17 03:00 INR 1.04 (0.93-1.08) 04/24/17 03:00 APTT 28.8 Seconds (25.1-36.5) 04/24/17 03:00 - Constitutional Appears: Chronically Ill - Head Exam Head Exam: NORMAL INSPECTION - ENT Exam ENT Exam: Mucous Membranes Moist - Neck Exam Neck Exam: absent: Meningismus - Respiratory Exam Respiratory Exam: Decreased Breath Sounds - Cardiovascular Exam Cardiovascular Exam: +S1, +S2 - GI/Abdominal Exam GI & Abdominal Exam: Soft. absent: Tenderness Assessment and Plan - Assessment and Plan (Free Text) Plan: Assessment Severe sepsis due to bilateral CAP, on top of possible NSTEMI opioid dependence dyslipidemia COPD BPH Plan Continue Vancomycin, Levaquin and Zosyn for cardiac cath today HIV test is negative will trend PCT
[2017-04-26] MEDS ORDERED: Aspirin 325 mg EC Tablets PO SCH (13:06)
--- NOTE | 2017-04-26 14:57 | CARDCATH ---
PROCEDURE DATE: 05/02/2017 HISTORY: The patient is a 51-year-old male who was found unconscious at home. He is a patient with a history of COPD and is on multiple medications include oxycodone as well as diazepam at home. In the hospital, he was found to have my mildly elevated troponins. Because of this, cardiac catheterization was recommended. Left heart catheterization with coronary arteriography and left ventriculogram with supra-aortic valvular injection. The right femoral artery was cannulated with 6-Moldovan sheath. There were no complications. I performed moderate sedation which included the presence of an independent trained observer that assisted in monitoring the patient's level of consciousness and physiologic status. After administration of Versed and fentanyl, my intra service time was 15 minutes. The findings on catheterization revealed a left ventricle that was within normal limits. Estimated ejection fraction 60%. The patient is 1a right dominant circulation. The RCA was unremarkable. The left main artery was unremarkable. The LAD and diagonal vessels were within normal limits. The circumflex artery and obtuse marginal branches were within normal limits. Manual compression was used to close the femoral artery site. The patient tolerated the procedure well. In summary, the procedure revealed unremarkable coronary arteries and normal LV function. Supra-aortic valvular injection revealed no aortic insufficiency. Given these findings, the patient's elevated troponins are likely due to his hypotension and not related to an ischemic cardiac event. Given these findings, I have discussed with the patient about the need to stop smoking. No further cardiac workup is necessary at this time. Felipe Gallegos MD
[2017-04-26] MEDS: Vancomycin 1gm in NS 250ml 1 GM/250 ML BAG IVPB SCH (23:07)
[2017-04-27] MEDS: Potassium Phosphate 15 MMOLE in Sodium Chloride 0.9% 250 ML IVPB ONE (02:11)
[2017-04-27] MEDS: Piperacillin/Tazobact 3.375 gm 100 ML IVPB SCH (05:42)
[2017-04-27 07:11] LABS: BASO # 0.01 K/mm3 (0.0-2.0); BASO % 0.1 % (0.0-3.0); EOS % 0.4 % (1.5-5.0); GRAN # 5.21 (1.4-6.5); GRAN % 70.6 % (50.0-68.0); HEMOGLOBIN 10.8 g/dL (14.0-18.0); LYMPH # 1.2 (1.2-3.4); LYMPH % 15.8 % (22.0-35.0); MEAN CELL VOLUME 90.5 fl (80.0-105.0); MEAN CORPUSCULAR HEMOGLOBIN 30.1 pg (25.0-35.0); MEAN CORPUSCULAR HGB CONC 33.2 g/dl (31.0-37.0); MEAN PLATELET VOLUME 11.3 fl (7.0-11.0); MONO % 13.1 % (1.0-6.0); RBC 3.59 10^6/uL (3.5-6.1); RED CELL DISTRIBUTION WIDTH 13.6 % (11.5-14.5); WHITE BLOOD COUNT 7.4 10^3/ul (4.5-11.0)
[2017-04-27 08:00] LABS: ALB/GLOB RATIO 1.1 (1.1-1.8); ALT/SGPT 66 U/L (7-56); AST/SGOT 43 U/L (17-59); BLOOD UREA NITROGEN 12 mg/dL (7-21); CALCIUM 8.2 mg/dL (8.4-10.5); GFR AFRICAN-AMERICAN > 60; GFR NON-AFRICAN AMERICAN > 60
[2017-04-27] MEDS ORDERED: Potassium Chloride 20 mEq ER Tab PO STA (08:35)
--- NOTE | 2017-04-27 08:45 | RAD ---
HISTORY: abdominal pain post cardiac cath COMPARISON: No prior. FINDINGS: BOWEL: A nonobstructive bowel gas pattern appreciated there is no gross free intrarenal gas however an obstructive series is more sensitive in evaluation of free air. Iodinated contrast to identified collecting in the urinary bladder in this patient status post recent cardiac catheterization. Otherwise, no abnormal intra-abdominal calcifications are identified. BONES: Normal. OTHER FINDINGS: None. IMPRESSION: Nonobstructive bowel gas pattern appreciated. Excreted iodinated contrast material is identified in the urinary bladder in this patient who is recently status post cardiac catheterization.
[2017-04-27] MEDS: levoFLOXacin 750 mg in D5W 150 ML BAG IVPB SCH (09:36)
--- NOTE | 2017-04-27 12:06 | CP.PCM.PN ---
<Markel Penn - Last Filed: 04/27/17 11:54> Subjective - Date & Time of Evaluation Date of Evaluation: 04/27/17 Time of Evaluation: 11:54 - Subjective Subjective: Medicine Progress Note Pt seen and examined at bedside. No acute overnight events. Pt still complaining of diarrhea and unable to initiate urination. Pt denies CP, SOB, nausea, vomiting, diarrhea, abdominal pain, fever, chills, NAGEL, or dizziness. Objective - Vital Signs/Intake and Output Vital Signs (last 24 hours): Temp Pulse Resp BP Pulse Ox 98.7 F 44 L 16 146/75 96 04/26/17 19:35 04/27/17 06:00 04/26/17 19:35 04/26/17 19:35 04/26/17 08:18 Intake and Output: 04/27/17 04/27/17 06:59 18:59 Intake Total 1400 120 Output Total 500 500 Balance 900 -380 - Medications Medications: Current Medications Aspirin (Ecotrin) 81 mg PO DAILY [facility] Last Admin: 04/27/17 09:12 Dose: 81 mg Benzocaine/Menthol (Cepacol Sore Throat) 1 catarino MT Q2H PRN PRN Reason: Sore Throat Last Admin: 04/25/17 12:54 Dose: 1 catarino Potassium Chloride (Potassium Chloride 10 Meq/100 Ml) 10 meq in 100 mls @ 50 mls/hr IVPB Q2H [facility] Stop: 04/27/17 12:44 Last Admin: 04/27/17 09:34 Dose: 50 mls/hr Ibuprofen (Motrin Tab) 400 mg PO Q6H [facility] PRN Reason: Pain, moderate (4-7) Last Admin: 04/27/17 09:12 Dose: 400 mg Levofloxacin/Dextrose (Levaquin 750mg) 750 mg IVPB DAILY [facility] Stop: 05/04/17 10:01 Last Admin: 04/27/17 09:36 Dose: 750 mg Metronidazole (Flagyl) 500 mg PO Q8 [facility] PRN Reason: Protocol Nicotine (Nicoderm Cq) 1 patch TD DAILY [facility] Last Admin: 04/27/17 09:13 Dose: 1 patch Pantoprazole Sodium (Protonix Inj) 40 mg IVP DAILY [facility] Last Admin: 04/27/17 09:13 Dose: 40 mg Tamsulosin HCl (Flomax) 0.4 mg PO BID [facility] Last Admin: 04/27/17 09:46 Dose: 0.4 mg - Labs Labs: 04/27/17 06:30 04/27/17 06:30 PT 11.4 SECONDS (9.4-12.5) 04/24/17 03:00 INR 1.04 (0.93-1.08) 04/24/17 03:00 APTT 28.8 Seconds (25.1-36.5) 04/24/17 03:00 - Constitutional Appears: No Acute Distress - Head Exam Head Exam: NORMAL INSPECTION - Eye Exam Eye Exam: Normal appearance - ENT Exam ENT Exam: Normal Exam - Neck Exam Neck Exam: Normal Inspection - Respiratory Exam Respiratory Exam: Clear to Ausculation Bilateral. absent: Rales, Rhonchi, Wheezes - Cardiovascular Exam Cardiovascular Exam: RRR, +S1, +S2. absent: Gallop, Rubs, Murmur - GI/Abdominal Exam GI & Abdominal Exam: Soft. absent: Distended, Guarding, Tenderness, Rebound - Extremities Exam Extremities Exam: Normal Inspection - Back Exam Back Exam: NORMAL INSPECTION - Neurological Exam Neurological Exam: Alert, Awake, Oriented x3 - Psychiatric Exam Psychiatric exam: Normal Affect, Normal Mood - Skin Skin Exam: Dry, Intact, Normal Color, Warm Assessment and Plan - Assessment and Plan (Free Text) Assessment: 51 year old male, whose pmh degenerative joint disease, chronic pain on Oxycontin, opiate dependence, COPD, HLD and BPH, who presents to the ED brought in by EMS due to being unresponsive. Admitted due to respiratory failure, sepsis 2/2 pneumonia, and elevated troponin. Plan: 1. Sepsis 2/2 pneumonia; sepsis resolved - AMS, respiratory failure resolved - Extubated - ID consulted for recs - Cont Vanc, levaquin - Afebrile, no leukocytosis - Sputum culture positive for MSSA, pt covered with current abx - Blood and urine cultures negative - CXR shows Possible aspiration pneumonia - Chest CT bilateral R > L lower lobe pneumonia - HIV, flu, legionella negative 2. Elevated troponin likely 2/2 hypotension - Troponin 0.16, 0.52 - EKG showed tachycardia with no ST wave changes - F/u echo - Cardio consulted Negative cath Avoid inciting medications 3. C. Diff colitis - Pt still with diarrhea - C. Diff antigen positive, toxin negative - Started PO flagyl 4. BPH - Cont flomax - Repeat UA - Will consider herrera and uro consult pending results 5. Central Hypothyroidism - Decreased TSH, low-normal free T4 - Brain MRI to rule out central lesion - Endo consulted 6. Unintentional weight loss - Significant weight loss over last year and back pain - History of pancreatic CA in family - Was scheduled for colonscopy prior to hospitalization - Recommend CT abd/pelv as outpatient 7. Hypokalemia - Repleted - Cont to monitor and replete as needed 8. Hypophosphatemia, resolved - Cont to monitor and replete as needed 9. Transaminitis - Elevated LFT's - Hep panel negatie - Cont to monitor 11. Hx of COPD - Duonebs PRN 12. HLD - Lipids WNL GI/DVT ppx - Protonix and SCDs Pt seen and discussed in detail with Dr. Liu. Jacob Penn, PGY1 <Dennis Liu - Last Filed: 04/27/17 18:06> Objective - Vital Signs/Intake and Output Vital Signs (last 24 hours): Temp Pulse Resp BP Pulse Ox 98.5 F 44 L 20 142/78 99 04/27/17 06:00 04/27/17 06:00 04/27/17 06:00 04/27/17 06:00 04/27/17 06:00 Intake and Output: 04/27/17 04/27/17 06:59 18:59 Intake Total 1400 660 Output Total 500 500 Balance 900 160 - Medications Medications: Current Medications Aspirin (Ecotrin) 81 mg PO DAILY [facility] Last Admin: 04/27/17 09:12 Dose: 81 mg Benzocaine/Menthol (Cepacol Sore Throat) 1 catarino MT Q2H PRN PRN Reason: Sore Throat Last Admin: 04/25/17 12:54 Dose: 1 catarino Cefazolin Sodium 2 gm/ Sodium (Chloride) 100 mls @ 200 mls/hr IVPB Q8 [facility] PRN Reason: Protocol Ibuprofen (Motrin Tab) 400 mg PO Q6H PRN PRN Reason: Pain, moderate (4-7) Last Admin: 04/27/17 09:12 Dose: 400 mg Levofloxacin (Levaquin) 750 mg PO DAILY [facility] Stop: 05/04/17 10:00 Levothyroxine Sodium (Synthroid) 25 mcg PO 0600 [facility] Metronidazole (Flagyl) 500 mg PO Q8 [facility] PRN Reason: Protocol Last Admin: 04/27/17 13:36 Dose: 500 mg Nicotine (Nicoderm Cq) 1 patch TD DAILY [facility] Last Admin: 04/27/17 09:13 Dose: 1 patch Pantoprazole Sodium (Protonix Ec Tab) 40 mg PO ACB [facility] Tamsulosin HCl (Flomax) 0.4 mg PO BID [facility] Last Admin: 04/27/17 09:46 Dose: 0.4 mg - Labs Labs: 04/27/17 06:30 04/27/17 06:30 PT 11.4 SECONDS (9.4-12.5) 04/24/17 03:00 INR 1.04 (0.93-1.08) 04/24/17 03:00 APTT 28.8 Seconds (25.1-36.5) 04/24/17 03:00 Attending/Attestation - Attestation I have personally seen and examined this patient.: Yes I have fully participated in the care of the patient.: Yes I have reviewed all pertinent clinical information, including history, physical exam and plan: Yes Notes (Text): Patient was seen and examined with nurses medical assistants phlebotomists. Agreed with assessment and plan. 51 year old male with PMH of DJD, Chronic pain syndrome, lumbar herniated disc disease, COPD, dyslipidemia, tobacco use, narcotic dependence, BPH was admitted with unresponsiveness (change of mental status), found to have to sepsis due to bilateral Pneumonia, NSTEMI . He was intubated upon arrival and had minimal response to narcan. He was extubated 2 days back. Patient cardiac cath showed normal coronaries, Sputum cultures are growing MSSA, Antibiotics can be changed to oral. Diarrhea is due to antibiotics, will monitor. Patient has low TSH , but lower normal T 4, MRI of brain is negative, will need out patient follow up with endocrine, Management plan was discussed in detail. Education was provided.
--- NOTE | 2017-04-27 12:31 | MRI ---
PROCEDURE: MRI BRAIN WITHOUT CONTRAST HISTORY: central lesion r/o COMPARISON: None. TECHNIQUE: Multiplanar, multisequence MR images of the brain were obtained without intravenous contrast enhancement. FINDINGS: HEMORRHAGE: None DWI: No evidence of an acute or early subacute infarction. BRAIN PARENCHYMA: No mass effect or edema. No atrophy or chronic microvascular ischemic changes. VENTRICLES: Unremarkable. No hydrocephalus. CRANIUM: Unremarkable. ORBITS: Grossly unremarkable. PARANASAL SINUSES/MASTOIDS: Clear VASCULAR SYSTEM: Skull base flow voids intact. OTHER FINDINGS: None. IMPRESSION: Unremarkable non contrast enhanced MRI of the brain.
--- NOTE | 2017-04-27 14:31 | PN ---
DATE: 04/27/2017 CARDIOLOGY FOLLOWUP SUBJECTIVE: The patient is comfortable in bed. OBJECTIVE: VITAL SIGNS: Blood pressure is 146/75, the heart rate is in the 50s. NECK: Negative JVD. LUNGS: Without rales. HEART: With S1, S2. EXTREMITIES: Without edema. The right groin side is stable. No hematoma. No ecchymosis. Pulses are stable. IMPRESSION: 1. Status post syncope. 2. Status post catheterization which shows normal left ventricular function and unremarkable coronary arteries. 3. Chronic obstructive pulmonary disease. PLAN: Given these findings, the patient is free of cardiac issues at this time. Plavix was discontinued. I agreed with continuing on aspirin and a cessation of smoking program. We will sign off the case today. Felipe Gallegos MD
--- NOTE | 2017-04-27 16:31 | CP.PCM.PN ---
Subjective - Date & Time of Evaluation Date of Evaluation: 04/27/17 Time of Evaluation: 10:45 - Subjective Subjective: Still having difficulty urinating, no fevers overnight, not in distress but at times has shortness of breath. Objective - Vital Signs/Intake and Output Vital Signs (last 24 hours): Temp Pulse Resp BP Pulse Ox 98.7 F 44 L 16 146/75 96 04/26/17 19:35 04/27/17 06:00 04/26/17 19:35 04/26/17 19:35 04/26/17 08:18 Intake and Output: 04/27/17 04/27/17 06:59 18:59 Intake Total 1400 120 Output Total 500 500 Balance 900 -380 - Medications Medications: Current Medications Aspirin (Ecotrin) 81 mg PO DAILY [facility] Last Admin: 04/27/17 09:12 Dose: 81 mg Benzocaine/Menthol (Cepacol Sore Throat) 1 catarino MT Q2H PRN PRN Reason: Sore Throat Last Admin: 04/25/17 12:54 Dose: 1 catarino Piperacillin Sod/Tazobactam Sod (Zosyn 3.375 In Ns 100ml) 100 mls @ 200 mls/hr IVPB Q6 ANILA PRN Reason: Protocol Stop: 05/03/17 12:01 Last Admin: 04/27/17 05:42 Dose: 200 mls/hr Potassium Chloride (Potassium Chloride 10 Meq/100 Ml) 10 meq in 100 mls @ 50 mls/hr IVPB Q2H [facility] Stop: 04/27/17 12:44 Last Admin: 04/27/17 09:34 Dose: 50 mls/hr Ibuprofen (Motrin Tab) 400 mg PO Q6H PRN PRN Reason: Pain, moderate (4-7) Last Admin: 04/27/17 09:12 Dose: 400 mg Levofloxacin/Dextrose (Levaquin 750mg) 750 mg IVPB DAILY [facility] Stop: 05/04/17 10:01 Last Admin: 04/27/17 09:36 Dose: 750 mg Nicotine (Nicoderm Cq) 1 patch TD DAILY [facility] Last Admin: 04/27/17 09:13 Dose: 1 patch Pantoprazole Sodium (Protonix Inj) 40 mg IVP DAILY [facility] Last Admin: 04/27/17 09:13 Dose: 40 mg Tamsulosin HCl (Flomax) 0.4 mg PO BID ANILA Last Admin: 04/27/17 03:52 Dose: 0.4 mg - Labs Labs: 04/27/17 06:30 04/27/17 06:30 PT 11.4 SECONDS (9.4-12.5) 04/24/17 03:00 INR 1.04 (0.93-1.08) 04/24/17 03:00 APTT 28.8 Seconds (25.1-36.5) 04/24/17 03:00 - Constitutional Appears: Non-toxic - Head Exam Head Exam: NORMAL INSPECTION - Respiratory Exam Respiratory Exam: Decreased Breath Sounds - Cardiovascular Exam Cardiovascular Exam: +S1, +S2 - GI/Abdominal Exam GI & Abdominal Exam: Soft. absent: Tenderness Assessment and Plan - Assessment and Plan (Free Text) Plan: Assessment Severe sepsis due to bilateral CAP, on top of possible NSTEMI, growing MSSA opioid dependence dyslipidemia COPD BPH Plan will change antibiotics to Cefazolin and will monitor clinically HIV test is negative will trend PCT (decreased yesterday to 1.46 from 4.15 on admission)
[2017-04-27] MEDS: ceFAZolin 2 GM in Sodium Chloride 0.9% 100 ML IVPB SCH ×2 (17:05→21:58)
[2017-04-28 02:40] LABS: SOURCE SERUM
--- NOTE | 2017-04-28 04:10 | CON ---
DATE: ENDOCRINOLOGY CONSULT LOCATION: Room 363. HISTORY OF PRESENT ILLNESS: This is a 51-year-old male being referred now for evaluation of abnormal thyroid function study. He denies any prior intake of any thyroid medications at this time. PAST MEDICAL HISTORY: History of chronic obstructive lung disease, prior nicotine dependence, history of chronic lower back pain and currently on OxyContin medications with opiate dependence. FAMILY HISTORY: Positive for hypertension and diabetes. SOCIAL HISTORY: The patient has supportive family and admits to nicotine dependence and opiate use. REVIEW OF SYSTEMS: Admits to generalized body weakness with episodic bouts of dizziness and lightheadedness. No chest pain, palpitations or PND. His oral intake has been variable with occasional dyspepsia. No recent alterations of bowel and urinary patterns. PHYSICAL EXAMINATION: GENERAL: Average built male, in no apparent distress. VITAL SIGNS: Blood pressure 140/80, pulse of 70 beats per minute regular, temperature 99, respirations 20. HEENT: Head normocephalic. Eyes anicteric with pink conjunctivae. Funduscopy not possible at this time. Ears, nose and throat otherwise normal. NECK: Supple. Thyroid gland is normal size. No carotid bruits or any cervical adenopathy. CARDIOPULMONARY: Some adynamic precordium. S1 and S2 is rapid and regular. Lungs are clear to auscultation. ABDOMEN: Flat, soft with positive bowel sounds. EXTREMITIES: No peripheral edema. Pulses are +2 bilaterally. LABORATORY DATA: Showed his thyroid studies showed a free T4 of 0.83 with TSH 0.17. Chemistry: BUN of 12, sodium 141, potassium 3.1, chloride 109, CO2 of 23, glucose 87, creatinine 0.8. ASSESSMENT: This is a clinically and biochemically euthyroid and most likely possibility is a so called acute sick euthyroid syndrome with compensations with acute physical stressors at this time. He remains clinically and biochemically euthyroid otherwise. PLAN OF MANAGEMENT: We will hold of any thyroid pharmacotherapy, pending a complete and comprehensive thyroid hormonal evaluation. We will obtain a total and free T4 and repeat TSH tomorrow and also obtain thyroid antibodies which will confirm and/or negate the presence of thyroid autoimmunity. We will obtain serial chemistries and supplement accordingly as needed. We will follow with you. Yudelka Turcios MD [facility] # [id number]
[2017-04-28] MEDS: ceFAZolin 2 GM in Sodium Chloride 0.9% 100 ML IVPB SCH ×3 (04:59→21:00)
[2017-04-28] MEDS ORDERED: Levothyroxine 25 MCG TAB PO SCH (06:00)
[2017-04-28 06:59] LABS: BASO # 0.03 K/mm3 (0.0-2.0); BASO % 0.4 % (0.0-3.0); EOS # 0.1 (0.0-0.7); EOS % 1.1 % (1.5-5.0); GRAN # 5.11 (1.4-6.5); GRAN % 68.8 % (50.0-68.0); HEMOGLOBIN 11.5 g/dL (14.0-18.0); LYMPH # 1.1 (1.2-3.4); MEAN CELL VOLUME 88.6 fl (80.0-105.0); MEAN CORPUSCULAR HEMOGLOBIN 30.5 pg (25.0-35.0); MEAN CORPUSCULAR HGB CONC 34.4 g/dl (31.0-37.0); MEAN PLATELET VOLUME 11.7 fl (7.0-11.0); MONO # 1.1 (0.1-0.6); MONO % 14.7 % (1.0-6.0); RBC 3.77 10^6/uL (3.5-6.1); RED CELL DISTRIBUTION WIDTH 13.4 % (11.5-14.5); WHITE BLOOD COUNT 7.4 10^3/ul (4.5-11.0)
[2017-04-28 07:41] LABS: ALB/GLOB RATIO 1.1 (1.1-1.8); ALBUMIN 2.9 g/dL (3.0-4.8); ALT/SGPT 56 U/L (7-56); AST/SGOT 37 U/L (17-59); BLOOD UREA NITROGEN 9 mg/dL (7-21); CALCIUM 8.3 mg/dL (8.4-10.5); GFR AFRICAN-AMERICAN > 60; GFR NON-AFRICAN AMERICAN > 60; MAGNESIUM 1.9 mg/dL (1.7-2.2)
[2017-04-28] MEDS ORDERED: Potassium Chloride 20 mEq ER Tab PO STA (07:44)
[2017-04-28] MEDS: Pantoprazole 40 mg EC Tab PO SCH (08:03)
[2017-04-28] MEDS ORDERED: Magnesium Sulfate 2 GM in Sodium Chloride 0.9% 100 ML IVPB ONE (09:01)
[2017-04-28] MEDS: levoFLOXacin 750 MG TAB PO SCH (09:22)
[2017-04-28 09:47] LABS: T4 8.2 ug/dL (5.5-11.0)
--- NOTE | 2017-04-28 14:32 | CP.PCM.DIS ---
<Markel Penn - Last Filed: 04/29/17 11:49> Provider - Provider Date of Admission: 04/24/17 05:00 Attending physician: Dennis Liu MD Consults: Cardio: Gallegos ID: [email or web address] Endo: Tam Time Spent in preparation of Discharge (in minutes): 45 Hospital Course - Lab Results Lab Results: Micro Results 04/27/17 16:00 Stool C. difficile Antigen & Toxin A,B (M - Final 04/26/17 04:00 Stool Stool Culture - Final NO SALMONELLA, SHIGELLA OR CAMPYLOBACTER ISOLATED. 04/26/17 04:00 Stool C. difficile Antigen & Toxin A,B (M - Final 04/27/17 02:30 Stool C. difficile Antigen & Toxin A,B (M - Final 04/25/17 00:15 Trachasp Gram Stain - Final 04/25/17 00:15 Trachasp Sputum Culture - Final Staphylococcus Aureus 04/24/17 06:40 Nose MRSA Culture (Admit) - Final MRSA NOT DETECTED 04/24/17 05:30 Urine Urine Culture - Final No Growth (<1,000 CFU/ML) Most Recent Lab Values WBC 7.4 10^3/ul (4.5-11.0) 04/28/17 06:00 RBC 3.77 10^6/uL (3.5-6.1) 04/28/17 06:00 Hgb 11.5 g/dL (14.0-18.0) L 04/28/17 06:00 Hct 33.4 % (42.0-52.0) L 04/28/17 06:00 MCV 88.6 fl (80.0-105.0) 04/28/17 06:00 MCH 30.5 pg (25.0-35.0) 04/28/17 06:00 MCHC 34.4 g/dl (31.0-37.0) 04/28/17 06:00 RDW 13.4 % (11.5-14.5) 04/28/17 06:00 Plt Count 147 10^3/uL (120.0-450.0) 04/28/17 06:00 MPV 11.7 fl (7.0-11.0) H 04/28/17 06:00 Gran % 68.8 % (50.0-68.0) H 04/28/17 06:00 Lymph % (Auto) 15.0 % (22.0-35.0) L 04/28/17 06:00 [place] % (Auto) 14.7 % (1.0-6.0) H 04/28/17 06:00 Eos % (Auto) 1.1 % (1.5-5.0) L 04/28/17 06:00 Baso % (Auto) 0.4 % (0.0-3.0) 04/28/17 06:00 Gran # 5.11 (1.4-6.5) 04/28/17 06:00 Lymph # 1.1 (1.2-3.4) L 04/28/17 06:00 [place] # 1.1 (0.1-0.6) H 04/28/17 06:00 Eos # 0.1 (0.0-0.7) 04/28/17 06:00 Baso # 0.03 K/mm3 (0.0-2.0) 04/28/17 06:00 PT 11.4 SECONDS (9.4-12.5) 04/24/17 03:00 INR 1.04 (0.93-1.08) 04/24/17 03:00 APTT 28.8 Seconds (25.1-36.5) 04/24/17 03:00 pCO2 28 mm/Hg (35-45) L 04/25/17 05:45 pO2 118.0 mm/Hg (80-100) H 04/25/17 05:45 HCO3 25.7 mmol/L (21-28) 04/25/17 05:45 ABG pH 7.57 (7.35-7.45) H 04/25/17 05:45 ABG Total CO2 26.6 mmol.L (22-28) 04/25/17 05:45 ABG O2 Saturation 99.4 % (95-98) H 04/25/17 05:45 ABG O2 Content 15.4 ML/dl (15-23) 04/25/17 05:45 ABG Base Excess 4.2 mmol/L (-2.0-3.0) H 04/25/17 05:45 ABG Hemoglobin 11.2 g/dL (11.7-17.4) L 04/25/17 05:45 ABG Carboxyhemoglobin 1.7 % (0.5-1.5) H 04/25/17 05:45 POC ABG HHb (Measured) 0.6 % (0-5) 04/25/17 05:45 ABG Methemoglobin 1.3 % (0.0-3.0) 04/25/17 05:45 ABG O2 Capacity 15.5 mL/dl (16-24) L 04/25/17 05:45 ABG Potassium 3.9 mmol/L (3.6-5.2) 04/24/17 08:40 VBG pH 7.34 (7.32-7.43) 04/24/17 12:45 VBG pCO2 49.0 (40-60) 04/24/17 12:45 VBG HCO3 26.4 mmol/l (21-28) 04/24/17 12:45 VBG Total CO2 27.9 mmol.L (22-28) 04/24/17 12:45 VBG O2 Sat (Calc) 82.3 % (40-65) H 04/24/17 12:45 VBG Base Excess 0.1 mmol/L (0.0-2.0) 04/24/17 12:45 VBG Potassium 3.8 mmol/L (3.6-5.2) 04/24/17 12:45 Hgb O2 Saturation 96.4 % (95.0-98.0) 04/25/17 05:45 Sodium 142.0 mmol/L (132-148) 04/24/17 12:45 Chloride 110.0 mmol/L (98-107) H 04/24/17 12:45 Glucose 143 mg/dl (75-110) H 04/24/17 12:45 Lactate 2.3 mmol/L (0.7-2.1) H 04/24/17 12:45 FiO2 40.0 % 04/25/17 05:45 Sodium 142 mmol/L (132-148) 04/28/17 06:20 Potassium 2.8 mmol/L (3.6-5.0) L* 04/28/17 06:20 Chloride 109 mmol/L (98-107) H 04/28/17 06:20 Carbon Dioxide 24 mmol/L (21-33) 04/28/17 06:20 Anion Gap 12 (10-20) 04/28/17 06:20 BUN 9 mg/dL (7-21) 04/28/17 06:20 Creatinine 0.6 mg/dl (0.8-1.5) L 04/28/17 06:20 Est GFR ( Amer) > 60 04/28/17 06:20 Est GFR (Non-Af Amer) > 60 04/28/17 06:20 POC Glucose (mg/dL) 89 mg/dL (65-110) 04/25/17 11:23 Random Glucose 88 mg/dL (70-110) 04/28/17 06:20 Hemoglobin A1c 5.4 % (4.2-6.5) 04/24/17 08:40 Calcium 8.3 mg/dL (8.4-10.5) L 04/28/17 06:20 Phosphorus 2.8 mg/dL (2.5-4.5) 04/28/17 06:20 Magnesium 1.9 mg/dL (1.7-2.2) 04/28/17 06:20 Total Bilirubin 0.6 mg/dL (0.2-1.3) 04/28/17 06:20 AST 37 U/L (17-59) 04/28/17 06:20 ALT 56 U/L (7-56) 04/28/17 06:20 Alkaline Phosphatase 52 U/L (38-126) 04/28/17 06:20 Lactate Dehydrogenase 545 U/L (333-699) 04/24/17 03:00 Total Creatine Kinase 379 U/L (35-230) H 04/24/17 03:00 CK-MB (CK-2) 4.9 ng/mL (0.0-3.6) H 04/24/17 03:00 CK-MB (CK-2) % Cancelled 04/24/17 03:00 Troponin I 0.52 ng/mL H* D 04/24/17 08:40 Total Protein 5.7 g/dL (5.8-8.3) L 04/28/17 06:20 Albumin 2.9 g/dL (3.0-4.8) L 04/28/17 06:20 Globulin 2.7 gm/dL 04/28/17 06:20 Albumin/Globulin Ratio 1.1 (1.1-1.8) 04/28/17 06:20 Triglycerides 75 mg/dL (35-160) 04/24/17 08:40 Cholesterol 117 mg/dL (130-200) L 04/24/17 08:40 LDL Cholesterol Direct 50 mg/dL (0-129) 04/24/17 08:40 HDL Cholesterol 48 mg/dL (29-60) 04/24/17 08:40 Procalcitonin 1.46 NG/ML (0.19-0.49) H 04/26/17 13:40 Free T4 0.83 ng/dL (0.78-2.19) 04/25/17 08:30 Thyroxine (T4) 8.2 ug/dL (5.5-11.0) 04/28/17 07:30 TSH 3rd Generation 1.80 mIU/mL (0.46-4.68) 04/28/17 07:30 Arterial Blood Potassium 3.9 mmol/L (3.6-5.2) 04/24/17 08:40 Venous Blood Potassium 3.8 mmol/L (3.6-5.2) 04/24/17 12:45 Urine Color Yellow (YELLOW) 04/24/17 05:30 Urine Appearance Sl cloudy (CLEAR) 04/24/17 05:30 Urine pH 5.5 (4.7-8.0) 04/24/17 05:30 Ur Specific [place] >= 1.030 (1.005-1.035) 04/24/17 05:30 Urine Protein 30 mg/dL (<30 mg/dL) H 04/24/17 05:30 Urine Glucose (UA) Negative mg/dL (NEGATIVE) 04/24/17 05:30 Urine Ketones Trace mg/dL (NEGATIVE) H 04/24/17 05:30 Urine Blood Large (NEGATIVE) H 04/24/17 05:30 Urine Nitrate Negative (NEGATIVE) 04/24/17 05:30 Urine Bilirubin Negative (NEGATIVE) 04/24/17 05:30 Urine Urobilinogen 0.2 E.U./dL (<1 E.U./dL) 04/24/17 05:30 Ur Leukocyte Esterase Negative Britni/uL (NEGATIVE) 04/24/17 05:30 Urine RBC 20 - 25 /hpf (0-2) 04/24/17 05:30 Urine WBC 0 - 2 /hpf (0-6) 04/24/17 05:30 Ur Epithelial Cells 0 - 2 /hpf (0-5) 04/24/17 05:30 Urine Bacteria Mod (NEG) 04/24/17 05:30 Salicylates < 1 mg/dL (2.0-20.0) L 04/24/17 03:00 Urine Opiates Screen Negative (NEGATIVE) 04/24/17 08:23 Urine Methadone Screen Negative (NEGATIVE) 04/24/17 08:23 Acetaminophen < 10.0 ug/ml (10.0-20.0) L 04/24/17 03:00 Ur Barbiturates Screen Negative (NEGATIVE) 04/24/17 08:23 Ur Phencyclidine Scrn Negative (NEGATIVE) 04/24/17 08:23 Ur Amphetamines Screen Negative (NEGATIVE) 04/24/17 08:23 U Benzodiazepines Scrn Positive (NEGATIVE) 04/24/17 08:23 U Oth Cocaine Metabols Negative (NEGATIVE) 04/24/17 08:23 U Cannabinoids Screen Negative (NEGATIVE) 04/24/17 08:23 Alcohol, Quantitative < 10 mg/dL (0-10) 04/24/17 03:00 Hepatitis A IgM Ab Negative (NEGATIVE) 04/25/17 05:00 Hep Bs Antigen Negative (NEGATIVE) 04/25/17 05:00 Hep B Core IgM Ab Negative (NEGATIVE) 04/25/17 05:00 Hepatitis C Antibody Negative (NEGATIVE) 04/25/17 05:00 HIV 1&2 Ag/Ab, 4th Gen Nonreactive (Nonreactive) 04/24/17 08:40 Influenza Typ A,B (EIA) Negative for flu a/b (NEGATIVE) 04/24/17 21:00 Ur L.pneumophila Ag Negative (NEGATIVE) 04/24/17 08:23 Pneumocystis Source Serum 04/24/17 08:00 S. pneumoniae Antigen Not detected 04/24/17 08:00 - Hospital Course Hospital Course: 51 year old male, whose pmh degenerative joint disease, chronic pain on Oxycontin, opiate dependence, COPD, HLD and BPH, who presented to the ED brought in by EMS due to being unresponsive. As per the son and family at bedside patient had been was last seen normal at 8-9pm. He took Oxycontin for chronic back pain and Xanax and stated that he may have overdosed on them. They denied any empty bottle of pills. At 2am the son saw the patient minimally unresponsive and called EMS. Patient was given 2 doses of Narcan in the field with minimal response. In the ED, patient was sedated and intubated for airway protection. Pt was found to have elevated troponin, elevated lactate, leukocytosis, and fever, thus code sepsis was called due to possible aspiration pneumonia. Pt was admitted to the ICU for respiratory failure and sepsis 2/2 pneumonia. ID was consulted, recommendations were appreciated. Cardiology was consulted, recommendations were appreciated. Pt was continued on IV abx. CXR showed Possible aspiration pneumonia. Chest CT bilateral R > L lower lobe pneumonia. Pt was weaned off mechanical ventilation and extubated in ICU. At this point patient was stable enough to be transferred out of the ICU. During hospital course, sputum cultures were positive for MSSA, antibiotics were given per sensitivities. Patient underwent cardiac catherization due to elevated troponins for suspected NSTEMI. However, cardiac catherization was negative. Thus, elevated troponins were likely due to hypotension. Pt was advised by cardiology to avoid narcotic pain medications and benzodiazepines. 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 Repeat thyroid studies showed improved thyroid function. Thus, outpatient monitoring was recommended to patient. Lastly, patient stated that he has had unintentional weight loss over the last year with back pain. Pt states that there is a family history of pancreatic CA. It was recommended to the patient that he have outpatient evaluation. Today, the patient was seen and examined at bedside. As the patient was medically stable, he was discharged. Pt was given an rx for oral antibiotics and advised to complete 5 day course. Pt was instructed to follow up with his PMD upon discharge. Discharge Diagnosis 1. Sepsis 2/2 pneumonia; sepsis resolved 2. Elevated troponin likely 2/2 hypotension 3. BPH 4. Possible Hypothyroidism Discharge Medications - Levaquin 750 mg PO BID x5 days - KCl 40 mEq PO daily x5 days - Cont home medications as per JUN Discharge Exam - Head Exam Head Exam: NORMAL INSPECTION - Eye Exam Eye Exam: Normal appearance - ENT Exam ENT Exam: Normal Exam - Neck Exam Neck exam: Normal Inspection - Respiratory Exam Respiratory Exam: Clear to PA & Lateral. absent: Rales, Rhonchi, Wheezes - Cardiovascular Exam Cardiovascular Exam: RRR, +S1, +S2. absent: Diastolic murmur, Gallop, Rubs, Systolic Murmur - GI/Abdominal Exam GI & Abdominal Exam: Soft. absent: Guarding, Rebound, Tenderness - Extremities Exam Extremities exam: normal inspection - Back Exam Back exam: NORMAL INSPECTION - Neurological Exam Neurological exam: Alert, Oriented x3 - Psychiatric Exam Psychiatric exam: Normal Affect, Normal Mood - Skin Skin Exam: Dry, Intact, Normal Color, Warm Discharge Plan - Discharge Medications Prescriptions: Aspirin [Ecotrin] 81 mg PO DAILY #15 tabec levoFLOXacin [Levaquin] 750 mg PO DAILY 5 Days tab Potassium Chloride [K-Dur 20 mEq ER Tab] 40 meq PO DAILY #5 tab - Follow Up Plan Condition: GUARDED Disposition: HOME/ ROUTINE Instructions: Sepsis (GEN) Additional Instructions: 1. Follow up with PMD within 1 week 2. Recommend repeat thyroid function tests as outpatient 3. Recommend CT abdomen/pelvis as outpatient due to history of weight loss 4. Complete 5 day course of antibiotics 5. Take new medications as prescribed 6. Return to ED if symptoms worsen Referrals: Elder Castellanos MD [Staff Provider] - Yudelka Turcios MD [Medical Doctor] - Felipe Gallegos MD [Staff Provider] - <Denice Parikh - Last Filed: 05/02/17 07:58> Provider - Provider Date of Admission: 04/24/17 05:00 Attending physician: Dennis Liu MD Hospital Course - Lab Results Lab Results: Micro Results 04/27/17 16:00 Stool C. difficile Antigen & Toxin A,B (M - Final 04/26/17 04:00 Stool Stool Culture - Final NO SALMONELLA, SHIGELLA OR CAMPYLOBACTER ISOLATED. 04/26/17 04:00 Stool C. difficile Antigen & Toxin A,B (M - Final 04/27/17 02:30 Stool C. difficile Antigen & Toxin A,B (M - Final 04/25/17 00:15 Trachasp Gram Stain - Final 04/25/17 00:15 Trachasp Sputum Culture - Final Staphylococcus Aureus 04/24/17 06:40 Nose MRSA Culture (Admit) - Final MRSA NOT DETECTED 04/24/17 05:30 Urine Urine Culture - Final No Growth (<1,000 CFU/ML) Most Recent Lab Values WBC 8.4 10^3/ul (4.5-11.0) 04/29/17 06:40 RBC 3.85 10^6/uL (3.5-6.1) 04/29/17 06:40 Hgb 11.9 g/dL (14.0-18.0) L 04/29/17 06:40 Hct 33.7 % (42.0-52.0) L 04/29/17 06:40 MCV 87.5 fl (80.0-105.0) 04/29/17 06:40 MCH 30.9 pg (25.0-35.0) 04/29/17 06:40 MCHC 35.3 g/dl (31.0-37.0) 04/29/17 06:40 RDW 13.5 % (11.5-14.5) 04/29/17 06:40 Plt Count 168 10^3/uL (120.0-450.0) 04/29/17 06:40 MPV 10.8 fl (7.0-11.0) 04/29/17 06:40 Gran % 65.7 % (50.0-68.0) 04/29/17 06:40 Lymph % (Auto) 16.2 % (22.0-35.0) L 04/29/17 06:40 [place] % (Auto) 15.9 % (1.0-6.0) H 04/29/17 06:40 Eos % (Auto) 1.7 % (1.5-5.0) 04/29/17 06:40 Baso % (Auto) 0.5 % (0.0-3.0) 04/29/17 06:40 Gran # 5.49 (1.4-6.5) 04/29/17 06:40 Lymph # 1.4 (1.2-3.4) 04/29/17 06:40 [place] # 1.3 (0.1-0.6) H 04/29/17 06:40 Eos # 0.1 (0.0-0.7) 04/29/17 06:40 Baso # 0.04 K/mm3 (0.0-2.0) 04/29/17 06:40 PT 11.4 SECONDS (9.4-12.5) 04/24/17 03:00 INR 1.04 (0.93-1.08) 04/24/17 03:00 APTT 28.8 Seconds (25.1-36.5) 04/24/17 03:00 pCO2 28 mm/Hg (35-45) L 04/25/17 05:45 pO2 118.0 mm/Hg (80-100) H 04/25/17 05:45 HCO3 25.7 mmol/L (21-28) 04/25/17 05:45 ABG pH 7.57 (7.35-7.45) H 04/25/17 05:45 ABG Total CO2 26.6 mmol.L (22-28) 04/25/17 05:45 ABG O2 Saturation 99.4 % (95-98) H 04/25/17 05:45 ABG O2 Content 15.4 ML/dl (15-23) 04/25/17 05:45 ABG Base Excess 4.2 mmol/L (-2.0-3.0) H 04/25/17 05:45 ABG Hemoglobin 11.2 g/dL (11.7-17.4) L 04/25/17 05:45 ABG Carboxyhemoglobin 1.7 % (0.5-1.5) H 04/25/17 05:45 POC ABG HHb (Measured) 0.6 % (0-5) 04/25/17 05:45 ABG Methemoglobin 1.3 % (0.0-3.0) 04/25/17 05:45 ABG O2 Capacity 15.5 mL/dl (16-24) L 04/25/17 05:45 ABG Potassium 3.9 mmol/L (3.6-5.2) 04/24/17 08:40 VBG pH 7.34 (7.32-7.43) 04/24/17 12:45 VBG pCO2 49.0 (40-60) 04/24/17 12:45 VBG HCO3 26.4 mmol/l (21-28) 04/24/17 12:45 VBG Total CO2 27.9 mmol.L (22-28) 04/24/17 12:45 VBG O2 Sat (Calc) 82.3 % (40-65) H 04/24/17 12:45 VBG Base Excess 0.1 mmol/L (0.0-2.0) 04/24/17 12:45 VBG Potassium 3.8 mmol/L (3.6-5.2) 04/24/17 12:45 Hgb O2 Saturation 96.4 % (95.0-98.0) 04/25/17 05:45 Sodium 142.0 mmol/L (132-148) 04/24/17 12:45 Chloride 110.0 mmol/L (98-107) H 04/24/17 12:45 Glucose 143 mg/dl (75-110) H 04/24/17 12:45 Lactate 2.3 mmol/L (0.7-2.1) H 04/24/17 12:45 FiO2 40.0 % 04/25/17 05:45 Sodium 141 mmol/L (132-148) 04/29/17 06:40 Potassium 3.0 mmol/L (3.6-5.0) L 04/29/17 06:40 Chloride 106 mmol/L (98-107) 04/29/17 06:40 Carbon Dioxide 25 mmol/L (21-33) 04/29/17 06:40 Anion Gap 14 (10-20) 04/29/17 06:40 BUN 8 mg/dL (7-21) 04/29/17 06:40 Creatinine 0.7 mg/dl (0.8-1.5) L 04/29/17 06:40 Est GFR ( Amer) > 60 04/29/17 06:40 Est GFR (Non-Af Amer) > 60 04/29/17 06:40 POC Glucose (mg/dL) 89 mg/dL (65-110) 04/25/17 11:23 Random Glucose 85 mg/dL (70-110) 04/29/17 06:40 Hemoglobin A1c 5.4 % (4.2-6.5) 04/24/17 08:40 Calcium 8.4 mg/dL (8.4-10.5) 04/29/17 06:40 Phosphorus 2.8 mg/dL (2.5-4.5) 04/28/17 06:20 Magnesium 1.9 mg/dL (1.7-2.2) 04/28/17 06:20 Total Bilirubin 0.7 mg/dL (0.2-1.3) 04/29/17 06:40 AST 26 U/L (17-59) 04/29/17 06:40 ALT 43 U/L (7-56) 04/29/17 06:40 Alkaline Phosphatase 48 U/L (38-126) 04/29/17 06:40 Lactate Dehydrogenase 545 U/L (333-699) 04/24/17 03:00 Total Creatine Kinase 379 U/L (35-230) H 04/24/17 03:00 CK-MB (CK-2) 4.9 ng/mL (0.0-3.6) H 04/24/17 03:00 CK-MB (CK-2) % Cancelled 04/24/17 03:00 Troponin I 0.52 ng/mL H* D 04/24/17 08:40 Total Protein 5.8 g/dL (5.8-8.3) 04/29/17 06:40 Albumin 3.0 g/dL (3.0-4.8) 04/29/17 06:40 Globulin 2.8 gm/dL 04/29/17 06:40 Albumin/Globulin Ratio 1.1 (1.1-1.8) 04/29/17 06:40 Triglycerides 75 mg/dL (35-160) 04/24/17 08:40 Cholesterol 117 mg/dL (130-200) L 04/24/17 08:40 LDL Cholesterol Direct 50 mg/dL (0-129) 04/24/17 08:40 HDL Cholesterol 48 mg/dL (29-60) 04/24/17 08:40 Procalcitonin 1.46 NG/ML (0.19-0.49) H 04/26/17 13:40 Free T4 0.83 ng/dL (0.78-2.19) 04/25/17 08:30 Thyroxine (T4) 8.2 ug/dL (5.5-11.0) 04/28/17 07:30 TSH 3rd Generation 1.80 mIU/mL (0.46-4.68) 04/28/17 07:30 Arterial Blood Potassium 3.9 mmol/L (3.6-5.2) 04/24/17 08:40 Venous Blood Potassium 3.8 mmol/L (3.6-5.2) 04/24/17 12:45 Urine Color Yellow (YELLOW) 04/28/17 16:40 Urine Appearance Clear (CLEAR) 04/28/17 16:40 Urine pH 6.0 (4.7-8.0) 04/28/17 16:40 Ur Specific [place] 1.010 (1.005-1.035) 04/28/17 16:40 Urine Protein Negative mg/dL (<30 mg/dL) 04/28/17 16:40 Urine Glucose (UA) Negative mg/dL (NEGATIVE) 04/28/17 16:40 Urine Ketones 40 mg/dL (NEGATIVE) H 04/28/17 16:40 Urine Blood Trace-intact (NEGATIVE) H 04/28/17 16:40 Urine Nitrate Negative (NEGATIVE) 04/28/17 16:40 Urine Bilirubin Negative (NEGATIVE) 04/28/17 16:40 Urine Urobilinogen 0.2 E.U./dL (<1 E.U./dL) 04/28/17 16:40 Ur Leukocyte Esterase Negative Britni/uL (NEGATIVE) 04/28/17 16:40 Urine RBC 1 - 3 /hpf (0-2) 04/28/17 16:40 Urine WBC Negative /hpf (0-6) 04/28/17 16:40 Ur Epithelial Cells 0 - 2 /hpf (0-5) 04/28/17 16:40 Urine Bacteria Mod (NEG) 04/24/17 05:30 Salicylates < 1 mg/dL (2.0-20.0) L 04/24/17 03:00 Urine Opiates Screen Negative (NEGATIVE) 04/24/17 08:23 Urine Methadone Screen Negative (NEGATIVE) 04/24/17 08:23 Acetaminophen < 10.0 ug/ml (10.0-20.0) L 04/24/17 03:00 Ur Barbiturates Screen Negative (NEGATIVE) 04/24/17 08:23 Ur Phencyclidine Scrn Negative (NEGATIVE) 04/24/17 08:23 Ur Amphetamines Screen Negative (NEGATIVE) 04/24/17 08:23 U Benzodiazepines Scrn Positive (NEGATIVE) 04/24/17 08:23 U Oth Cocaine Metabols Negative (NEGATIVE) 04/24/17 08:23 U Cannabinoids Screen Negative (NEGATIVE) 04/24/17 08:23 Alcohol, Quantitative < 10 mg/dL (0-10) 04/24/17 03:00 Hepatitis A IgM Ab Negative (NEGATIVE) 04/25/17 05:00 Hep Bs Antigen Negative (NEGATIVE) 04/25/17 05:00 Hep B Core IgM Ab Negative (NEGATIVE) 04/25/17 05:00 Hepatitis C Antibody Negative (NEGATIVE) 04/25/17 05:00 HIV 1&2 Ag/Ab, 4th Gen Nonreactive (Nonreactive) 04/24/17 08:40 Influenza Typ A,B (EIA) Negative for flu a/b (NEGATIVE) 04/24/17 21:00 Ur L.pneumophila Ag Negative (NEGATIVE) 04/24/17 08:23 Pneumocystis Source Serum 04/24/17 08:00 S. pneumoniae Antigen Not detected 04/24/17 08:00 Attending/Attestation - Attestation I have personally seen and examined this patient.: Yes I have fully participated in the care of the patient.: Yes I have reviewed all pertinent clinical information, including history, physical exam and plan: Yes Notes (Text): 05/02/17 07:55 Attending note; Patient was seen and examined with medical care manager. Patient is a 51 year old male with past medical history of Chronic pain syndrome , lumbar herniated disc disease, COPD, dyslipidemia, tobacco use, narcotic dependence, BPH was admitted with unresponsiveness (change of mental status), found to have to sepsis due to bilateral Pneumonia, NSTEMI . He was intubated upon arrival and had minimal response to narcan. He was extubated . Currently stable respiratory status. Patient cardiac cath showed normal coronaries. Sputum cultures are growing MSSA. Will be discharged home with levofloxacin. ID evaluation appreciated. Diarrhea improved. PT evaluation appreciated. Prescription for home PT given. Upon discharge patient will follow-up with PMD Dr. lópez. Diagnosis; Pneumonia Tobacco use Narcotic use COPD Chronic pain syndrome Status post extubation
[2017-04-28 14:58] LABS: BLOOD UREA NITROGEN 7 mg/dL (7-21); CALCIUM 8.1 mg/dL (8.4-10.5); GFR AFRICAN-AMERICAN > 60; GFR NON-AFRICAN AMERICAN > 60
--- NOTE | 2017-04-28 16:03 | CP.PCM.PN ---
<Markel Penn - Last Filed: 04/28/17 15:59> Subjective - Date & Time of Evaluation Date of Evaluation: 04/28/17 Time of Evaluation: 15:59 - Subjective Subjective: Medicine Progress Note Pt seen and examined at bedside. No acute overnight events. Pt states that diarrhea has improved. Pt denies CP, SOB, nausea, vomiting, abdominal pain, fever, chills, NAGEL, or dizziness. Objective - Vital Signs/Intake and Output Vital Signs (last 24 hours): Temp Pulse Resp BP Pulse Ox 98.2 F 50 L 20 160/92 H 98 04/28/17 08:10 04/28/17 08:10 04/28/17 08:10 04/28/17 08:10 04/28/17 08:10 Intake and Output: 04/28/17 04/28/17 06:59 18:59 Intake Total 420 540 Output Total 220 150 Balance 200 390 - Medications Medications: Current Medications Aspirin (Ecotrin) 81 mg PO DAILY [facility] Last Admin: 04/28/17 09:22 Dose: 81 mg Benzocaine/Menthol (Cepacol Sore Throat) 1 catarino MT Q2H PRN PRN Reason: Sore Throat Last Admin: 04/25/17 12:54 Dose: 1 catarino Cefazolin Sodium 2 gm/ Sodium (Chloride) 100 mls @ 200 mls/hr IVPB Q8 ANILA PRN Reason: Protocol Last Admin: 04/28/17 13:37 Dose: 200 mls/hr Ibuprofen (Motrin Tab) 400 mg PO Q6H PRN PRN Reason: Pain, moderate (4-7) Last Admin: 04/27/17 23:07 Dose: 400 mg Levofloxacin (Levaquin) 750 mg PO DAILY [facility] Stop: 05/04/17 10:00 Last Admin: 04/28/17 09:22 Dose: 750 mg Nicotine (Nicoderm Cq) 1 patch TD DAILY [facility] Last Admin: 04/28/17 09:22 Dose: 1 patch Pantoprazole Sodium (Protonix Ec Tab) 40 mg PO ACB [facility] Last Admin: 04/28/17 08:03 Dose: 40 mg Tamsulosin HCl (Flomax) 0.4 mg PO BID [facility] Last Admin: 04/28/17 09:22 Dose: 0.4 mg - Labs Labs: 04/28/17 06:00 04/28/17 13:45 PT 11.4 SECONDS (9.4-12.5) 04/24/17 03:00 INR 1.04 (0.93-1.08) 04/24/17 03:00 APTT 28.8 Seconds (25.1-36.5) 04/24/17 03:00 - Constitutional Appears: No Acute Distress - Head Exam Head Exam: NORMAL INSPECTION - Eye Exam Eye Exam: Normal appearance - Neck Exam Neck Exam: Normal Inspection - Respiratory Exam Respiratory Exam: Clear to Ausculation Bilateral. absent: Rales, Rhonchi, Wheezes - Cardiovascular Exam Cardiovascular Exam: RRR, +S1, +S2. absent: Gallop, Rubs, Murmur - GI/Abdominal Exam GI & Abdominal Exam: Soft. absent: Distended, Guarding, Tenderness, Rebound - Extremities Exam Extremities Exam: Normal Inspection - Back Exam Back Exam: NORMAL INSPECTION - Neurological Exam Neurological Exam: Alert, Awake, Oriented x3 - Psychiatric Exam Psychiatric exam: Normal Affect, Normal Mood - Skin Skin Exam: Dry, Intact, Normal Color, Warm Assessment and Plan - Assessment and Plan (Free Text) Assessment: 51 year old male, whose pmh degenerative joint disease, chronic pain on Oxycontin, opiate dependence, COPD, HLD and BPH, who presents to the ED brought in by EMS due to being unresponsive. Admitted due to respiratory failure, sepsis 2/2 pneumonia, and elevated troponin. Plan: 1. Sepsis 2/2 pneumonia; sepsis resolved - AMS, respiratory failure resolved - Extubated - ID consulted for recs - Cont ancef - Cont levaquin, will dc with PO levaquin - Afebrile, no leukocytosis - Sputum culture positive for MSSA - Blood and urine cultures negative - CXR shows Possible aspiration pneumonia - Chest CT bilateral R > L lower lobe pneumonia - HIV, flu, legionella negative 2. Elevated troponin likely 2/2 hypotension - Troponin 0.16, 0.52 - EKG showed tachycardia with no ST wave changes - F/u echo - Cardio consulted Negative cath Avoid inciting medications 3. C. Diff colitis ruled out - Repeat C. Diff antigen negativeve, toxin negative 4. BPH - Cont flomax 5. Possible Central Hypothyroidism - Decreased TSH, low-normal free T4 - Repeat thyroid function tests improved - Brain MRI negative - Endo consulted 6. Unintentional weight loss - Significant weight loss over last year and back pain - History of pancreatic CA in family - Was scheduled for colonscopy prior to hospitalization - Recommend CT abd/pelv as outpatient 7. Hypokalemia - Repleted - Cont to monitor and replete as needed 8. Hypophosphatemia, resolved - Cont to monitor and replete as needed 9. Transaminitis - Elevated LFT's - Hep panel negatie - Cont to monitor 11. Hx of COPD - Duonebs PRN 12. HLD - Lipids WNL GI/DVT ppx - Protonix and SCDs Pt seen and discussed in detail with Dr. Liu. Jacob Penn, PGY1 <Dennis Liu - Last Filed: 05/01/17 11:13> Objective - Vital Signs/Intake and Output Vital Signs (last 24 hours): Temp Pulse Resp BP Pulse Ox 99.4 F 59 L 19 148/86 94 L 04/29/17 08:54 04/29/17 08:54 04/29/17 08:54 04/29/17 08:54 04/29/17 08:54 - Labs Labs: 04/29/17 06:40 04/29/17 06:40 PT 11.4 SECONDS (9.4-12.5) 04/24/17 03:00 INR 1.04 (0.93-1.08) 04/24/17 03:00 APTT 28.8 Seconds (25.1-36.5) 04/24/17 03:00 Attending/Attestation - Attestation I have fully participated in the care of the patient.: Yes I have reviewed all pertinent clinical information, including history, physical exam and plan: Yes Notes (Text): 05/01/17 11:12 Patient was seen and examined with emergency medical technician/driver. Agreed with assessment and plan. 51 year old male with PMH of DJD, Chronic pain syndrome, lumbar herniated disc disease, COPD, dyslipidemia, tobacco use, narcotic dependence, BPH was admitted with unresponsiveness (change of mental status), found to have to sepsis due to bilateral Pneumonia, NSTEMI . He was intubated upon arrival and had minimal response to narcan. He was extubated 3 days back. Hypoxia is im proved.Patient cardiac cath showed normal coronaries, Sputum cultures are growing MSSA, Antibiotics can be changed to oral. Diarrhea is due to antibiotics, has improved. Patient is awaiting to be cleared by Physical therapy for discharge. Management plan was discussed in detail. Education was provided.
[2017-04-28 17:13] VITALS: RESP 19
[2017-04-28 17:57] LABS: URINE BILIRUBIN NEGATIVE (NEGATIVE); URINE BLOOD TRACE-INTACT (NEGATIVE); URINE GLUCOSE (UA) NEGATIVE (NEGATIVE); URINE LEUKOCYTE ESTERASE NEGATIVE Leu/uL (NEGATIVE); URINE NITRATE NEGATIVE (NEGATIVE); URINE PROTEIN NEGATIVE mg/dL (<30 mg/dL); URINE UROBILINOGEN 0.2 E.U./dL (<1 E.U./dL)
[2017-04-28 17:59] LABS: URINE APPEARANCE CLEAR (CLEAR); URINE COLOR YELLOW (YELLOW)
[2017-04-28 18:02] LABS: URINE EPITHELIAL CELLS 0 - 2 /hpf (0-5); URINE WBC NEGATIVE /hpf (0-6)
[2017-04-28] MEDS: Potassium Phosphate 15 MMOLE in Sodium Chloride 0.9% 250 ML IVPB ONE (22:40)
--- NOTE | 2017-04-29 00:17 | PN ---
DATE: ENDOCRINOLOGY FOLLOWUP NOTE LOCATION: Room 363. SUBJECTIVE: This is a 51-year-old male with recent admission for drug overdose and altered mental status and has improved clinically and hemodynamically as noted thereof. Has also been followed for abnormal thyroid function studies, but has remained clinically and biochemically euthyroid at this time. The latest chemistry showed a sodium of , potassium 3.4, chloride 107, CO2 of 24, glucose 116, and creatinine 0.6. The latest thyroid study showed a free T4 of 0.83 and a TSH of 0.17 indicative of the so called acute sick euthyroid syndrome, which should improve metabolically as his clinical status improve. No indication at this time for any kind of thyroid pharmacotherapy. We will continue the serial chemistry and supplement accordingly. We will also obtain serial thyroid studies and should expect normalization of the aforementioned level accordingly. Yudelka Turcios MD
[2017-04-29] MEDS: ceFAZolin 2 GM in Sodium Chloride 0.9% 100 ML IVPB SCH (05:40)
[2017-04-29 07:09] LABS: BASO # 0.04 K/mm3 (0.0-2.0); BASO % 0.5 % (0.0-3.0); EOS # 0.1 (0.0-0.7); EOS % 1.7 % (1.5-5.0); GRAN # 5.49 (1.4-6.5); GRAN % 65.7 % (50.0-68.0); HEMOGLOBIN 11.9 g/dL (14.0-18.0); LYMPH # 1.4 (1.2-3.4); LYMPH % 16.2 % (22.0-35.0); MEAN CELL VOLUME 87.5 fl (80.0-105.0); MEAN CORPUSCULAR HEMOGLOBIN 30.9 pg (25.0-35.0); MEAN CORPUSCULAR HGB CONC 35.3 g/dl (31.0-37.0); MEAN PLATELET VOLUME 10.8 fl (7.0-11.0); MONO # 1.3 (0.1-0.6); MONO % 15.9 % (1.0-6.0); RBC 3.85 10^6/uL (3.5-6.1); RED CELL DISTRIBUTION WIDTH 13.5 % (11.5-14.5); WHITE BLOOD COUNT 8.4 10^3/ul (4.5-11.0)
[2017-04-29 07:45] LABS: ALB/GLOB RATIO 1.1 (1.1-1.8); ALT/SGPT 43 U/L (7-56); AST/SGOT 26 U/L (17-59); BLOOD UREA NITROGEN 8 mg/dL (7-21); CALCIUM 8.4 mg/dL (8.4-10.5); GFR AFRICAN-AMERICAN > 60; GFR NON-AFRICAN AMERICAN > 60
[2017-04-29] MEDS ORDERED: Potassium Chloride 20 mEq ER Tab PO STA (08:05)
[2017-04-29 08:55] VITALS: BP 148/86; PULSE 59; TEMP 99.4; O2SAT 94
[2017-04-29] MEDS: levoFLOXacin 750 MG TAB PO SCH (10:25)
[2017-04-29] MEDS: Pantoprazole 40 mg EC Tab PO SCH (10:26)
[2017-04-29] MEDS ORDERED: Influenza Vaccine 60 mcg/0.5 mL SYR (4YR UP) IM ONE (13:01)
--- NOTE | 2017-05-02 08:49 | PN ---
DATE: 04/29/2017 ENDOCRINOLOGY FOLLOWUP NOTE LOCATION: Room 363. SUBJECTIVE: This is a 51-year-old male with recent admission for drug overdose and a brief bout of unresponsiveness and since then improved clinically and hemodynamically as noted thereof. LABORATORY DATA: His latest chemistry showed a BUN of 7, sodium 141, potassium 3.4, chloride 107, CO2 of 24, glucose 115 and creatinine 0.6. ASSESSMENT AND PLAN: He is also ongoing management for acute pneumonitis and possible aspiration pneumonia as noted thereof. He remains clinically euthyroid at this time and biochemically his thyroid studies were indicative of the so called acute sick euthyroid syndrome, which should improve metabolically as his clinical status improves. There is no indication at this time for any kind of thyroid pharmacotherapy. We will obtain serial thyroid studies and observe the metabolic improvement thereof. We will follow with you. Yudelka uTrcios MD
== END 2017-04-29 14:14 | disposition home or self-care (01) | DRG 584 ==
LOC: ED 02:54 → ERH 05:00 → ICU 06:28 → 3RNO 04-25 22:12 → 2RSO 04-26 13:52 → 3RNO 04-26 22:53
PROVIDERS: ADMIT Hospitalist; ATTEND Internal Medicine
PROC: 5A1945Z Respiratory Ventilation, 24-96 Consecutive Hours (ICD-10-PCS; principal; 2017-04-24)
PROC: 0BH17EZ Insertion of Endotracheal Airway into Trachea, Via Natural or Artificial Opening (ICD-10-PCS; 2017-04-24)
PROC: 05HM33Z Insertion of Infusion Device into Right Internal Jugular Vein, Percutaneous Approach (ICD-10-PCS; 2017-04-24)
PROC: B543ZZA Ultrasonography of Right Jugular Veins, Guidance (ICD-10-PCS; 2017-04-24)
PROC: 4A023N7 Measurement of Cardiac Sampling and Pressure, Left Heart, Percutaneous Approach (ICD-10-PCS; 2017-04-26)
PROC: B2151ZZ Fluoroscopy of Left Heart using Low Osmolar Contrast (ICD-10-PCS; 2017-04-26)
PROC: B2111ZZ Fluoroscopy of Multiple Coronary Arteries using Low Osmolar Contrast (ICD-10-PCS; 2017-04-26)
DX: A41.9 Sepsis, unspecified organism (principal); J18.9 Pneumonia, unspecified organism; J96.92 Respiratory failure, unspecified with hypercapnia; I21.4 Non-ST elevation (NSTEMI) myocardial infarction; J44.0 Chronic obstructive pulmonary disease with (acute) lower respiratory infection; F11.20 Opioid dependence, uncomplicated; E87.6 Hypokalemia; R65.20 Severe sepsis without septic shock; T50.901A Poisoning by unspecified drugs, medicaments and biological substances, accidental (unintentional), initial encounter; E78.5 Hyperlipidemia, unspecified; G89.4 Chronic pain syndrome; F17.210 Nicotine dependence, cigarettes, uncomplicated; N40.0 Benign prostatic hyperplasia without lower urinary tract symptoms; M51.26 Other intervertebral disc displacement, lumbar region; E07.81 Sick-euthyroid syndrome; D64.9 Anemia, unspecified; M19.90 Unspecified osteoarthritis, unspecified site; E83.39 Other disorders of phosphorus metabolism; R19.7 Diarrhea, unspecified; T36.95XA Adverse effect of unspecified systemic antibiotic, initial encounter; R63.4 Abnormal weight loss; Z68.23 Body mass index [BMI] 23.0-23.9, adult

== ENCOUNTER 2018-08-14 11:42 | Emergency (ER) | payer OTHER ==
--- NOTE | 2018-08-14 12:43 | ED PDOC ---
Arrival/HPI - General Time Seen by Provider: 08/14/18 11:51 - History of Present Illness Narrative History of Present Illness (Text): 08/15/18 17:01 53 y/o male presents to the ED c/o right wrist and hand pain s/p injury 2 days ago. Pt states he was attempting to climb off his roof when he tripped and fell approx 5 feet to the ground. Denies head strike or LOC. Since that time he has had worsening pain and swelling to right wrist and hand. Also has mild upper back pain. Has not taken any medications for pain. Denies numbness, weakness, paresthesias, neck pain, abdominal pain, chest pain, SOB, nausea, vomiting, dizziness, headache, vision changes, or any other associated symptoms. Past Medical History - Infectious Disease Hx of Infectious Diseases: None - Tetanus Immunization Tetanus Immunization: Unknown - Cardiac Hx Cardiac Disorders: Yes (s/p cardiac cath) - Pulmonary Hx Chronic Obstructive Pulmonary Disease (COPD): Yes - Neurological Hx Neurological Disorder: No - HEENT Hx HEENT Disorder: No - Renal Hx Renal Disorder: No Hx Renal Failure: No - Endocrine/Metabolic Hx Endocrine Disorders: No - Hematological/Oncological Hx Blood Disorders: No - Integumentary Hx Dermatological Disorder: No - Musculoskeletal/Rheumatological Hx Back Pain: Yes Other/Comment: Knee problems - Gastrointestinal Hx Gastrointestinal Disorders: No - Genitourinary/Gynecological Hx Genitourinary Disorders: No Hx Prostate Problems: Yes Other/Comment: hx of kidney stones, frequent urination. On flomax daily - Psychiatric Hx Substance Use: No - Surgical History Hx Amputation: No Hx Appendectomy: Yes Hx Cardiac Catheterization: Yes Hx Orthopedic Surgery: Yes (knee) - Anesthesia Hx Anesthesia Reactions: No - Suicidal Assessment Feels Threatened In Home Enviroment: No Family/Social History Smoking Status: Heavy Smoker > 10 Cigarettes Daily Hx Alcohol Use: No Hx Substance Use: No Hx Substance Use Treatment: No Allergies/Home Meds Allergies/Adverse Reactions: Allergies No Known Allergies Allergy (Verified 08/14/18 12:45) Home Medications: Home Meds Medication Instructions Recorded Confirmed Tamsulosin [Flomax] 0.4 mg PO BID 02/21/13 04/24/17 Medical Decision Making - RAD Interpretation Narrative RAD Interpretations (Text): 08/14/18 14:01 FINDINGS: BONES: Normal. No fracture. JOINTS: Normal. No dislocation. SOFT TISSUES: Normal. OTHER FINDINGS: None. IMPRESSION: Normal right wrist radiographs. FINDINGS: BONES: Alignment maintained. No fracture. DISC SPACES: Normal. SOFT TISSUES: Normal. OTHER FINDINGS: None. IMPRESSION: Normal radiographs of the thoracic spine. FINDINGS: BONES: Normal. No fracture. JOINTS: Normal. No dislocation. SOFT TISSUES: Normal. OTHER FINDINGS: None. IMPRESSION: Normal right wrist radiographs. Disposition/Present on Arrival - Present on Arrival Any Indicators Present on Arrival: No History of DVT/PE: No History of Uncontrolled Diabetes: No Urinary Catheter: No History Surgical Site Infection Following: None - Disposition Have Diagnosis and Disposition been Completed?: Yes Diagnosis: Wrist sprain Disposition: HOME/ ROUTINE Disposition Time: 14:02 Condition: IMPROVED Discharge Instructions (ExitCare): Wrist Sprain (DC) Additional Instructions: Rest, ice, elevate injured wrist Ibuprofen every 8 hours as needed for pain Keep brace on until followup Followup with orthopedics within 2 days Followup with primary doctor within 2 days Return to ER with any new/worsening symptoms Prescriptions: Ibuprofen [Motrin Tab] 600 mg PO Q8 #30 tab Referrals: Austin Joe JD, MD [Primary Care Provider] - Follow up with primary Uriel Hager MD [Staff Provider] - Follow up with primary Forms: [facility] (Indian), WORK NOTE
[2018-08-14 12:44] VITALS: BMI 22.2
[2018-08-14] MEDS ORDERED: TDAP Vaccine 0.5 mL Syr IM ONE (12:44)
[2018-08-14 12:49] VITALS: O2SAT 96
--- NOTE | 2018-08-14 13:55 | RAD ---
Date of service: 08/14/2018 PROCEDURE: Right Wrist Radiographs. HISTORY: fall 2 days ago, lateral pain COMPARISON: None. TECHNIQUE: 4 views obtained. FINDINGS: BONES: Normal. No fracture. JOINTS: Normal. No dislocation. SOFT TISSUES: Normal. OTHER FINDINGS: None. IMPRESSION: Normal right wrist radiographs.
--- NOTE | 2018-08-14 13:56 | RAD ---
Date of service: 08/14/2018 HISTORY: fall 2 days ago COMPARISON: No prior. TECHNIQUE: 2 views obtained. FINDINGS: BONES: Alignment maintained. No fracture. DISC SPACES: Normal. SOFT TISSUES: Normal. OTHER FINDINGS: None. IMPRESSION: Normal radiographs of the thoracic spine.
--- NOTE | 2018-08-14 13:57 | RAD ---
PROCEDURE: Right Hand Radiographs. HISTORY: fall 2 days ago, 1st 2nd pain COMPARISON: None. TECHNIQUE: 3 views obtained. FINDINGS: BONES: Normal. No fracture. JOINTS: Normal. No osteoarthritic changes. SOFT TISSUES: Normal. OTHER FINDINGS: None. IMPRESSION: Normal right hand radiographs.
[2018-08-14 14:18] VITALS: BP 114/89; PULSE 73; RESP 20; TEMP 98
== END 2018-08-14 14:17 | disposition home or self-care (01) ==
LOC: ED 11:42
DX: S63.501A Unspecified sprain of right wrist, initial encounter (principal); W13.2XXA Fall from, out of or through roof, initial encounter; F17.210 Nicotine dependence, cigarettes, uncomplicated; J44.9 Chronic obstructive pulmonary disease, unspecified; Z23 Encounter for immunization
CPT/HCPCS: 72070; 73110; 73130; 90471; 90715; 96372; 99282; J1885